=== PATIENT | female | born 1955 | race Caucasian/White ===

== ENCOUNTER 2020-05-09 13:43 | Observation (INO) | payer OTHER ==
[~2020-05-09] VITALS: Ht 170.2 cm; Wt 129.3 kg
[~2020-05-09 13:43] MED LIST: ATOR40TA PO; GEMF600 PO; IBUP100S PO; OMEP20ER PO; SERT100 PO; SERT50 PO; SIMV40 PO
[2020-05-09 14:20] LABS: BASOPHILS ABSOLUTE AUTO 0.07 K/mm3 (0.00-0.23); BASOPHILS PERCENT AUTO 1 % (0-2); EOSINOPHILS PERCENT AUTO 1 % (0-6); Hematocrit 37.5 % (33.0-51.0); Hemoglobin 11.7 g/dL (11.5-16.0); IMMATURE GRAN ABSOLUTE AUTO 0.02 K/mm3 (0.00-0.10); IMMATURE GRAN PERCENT AUTO 0 % (0-1); LYMPHOCYTES ABSOLUTE AUTO 1.38 K/mm3 (0.84-5.20); LYMPHOCYTES PERCENT AUTO 17 % (21-46); MONOCYTES ABSOLUTE AUTO 0.56 K/mm3 (0.16-1.47); MONOCYTES PERCENT AUTO 7 % (4-13); Mean Corpuscular HGB 23.5 pg (26.0-34.0); Mean Corpuscular HGB Conc 31.2 g/dL (31.5-36.5); Mean Corpuscular Volume 76 fL (80-100); Mean Platelet Volume 9.2 fL (9.1-12.4); NEUTROPHILS ABSOLUTE AUTO 6.03 K/mm3 (1.96-9.15); NEUTROPHILS PERCENT AUTO 74 % (41-73); Platelet Count 286 K/mm3 (150-400); RDW Coefficient Variation 16.2 % (11.7-14.2); RDW Standard Deviation 44.4 fL (35.1-46.3); Red Blood Cell Count 4.97 M/mm3 (3.80-5.20); White Blood Cell Count 8.16 K/mm3 (4.00-11.30)
[2020-05-09] MEDS ORDERED: ALPR.5 PO (14:26)
[2020-05-09 14:42] LABS: Alanine Aminotransfer (ALT/SGP 25 U/L (12-78); Albumin, Blood 3.4 g/dL (3.4-5.0); Albumin/Globulin Ratio 0.8 (0.8-1.8); Alk Phos 92 U/L (50-136); Anion Gap 8 mmol/L (6-16); Aspartate Aminotrans (AST/SGOT 12 U/L (12-37); Bilirubin, Total 0.7 mg/dL (0.1-1.0); Blood Urea Nitrogen 15 mg/dL (8-24); Bun/Creatinine Ratio 18.1 (12.0-20.0); CO2, Blood 24 mmol/L (21-32); Calcium, Blood 8.5 mg/dL (8.5-10.1); Chloride, Blood 108 mmol/L (98-108); Creatinine, Blood 0.83 mg/dL (0.40-1.00); Glomerular Filtration Rate >60 (60-); Glucose, Blood 191 mg/dL (70-99); Sodium, Blood 140 mmol/L (136-145); Total Protein, Blood 7.4 g/dL (6.4-8.2); Troponin I <0.015 ng/mL (0.000-0.040)
[2020-05-09 16:32] LABS: CHOL/HDL RATIO 5.4; Cholesterol 298 mg/dL (50-200); HDL Cholesterol 55 mg/dL (>39); LDL/HDL RATIO 3.4; Low Density Lipoprotein Chol 186 mg/dL (0-110); Triglycerides 283 mg/dL (30-160); Very Low Density Lipoprot Chol 56 mg/dL (6-32)
--- NOTE | 2020-05-09 19:05 | NUR ---
PATIENT IS ALERT AND ORIENTED. A LATE DINNER TRAY WAS ORDERED FOR THIS PATIENT. ICE WATER WAS PROVIDED TO THE PATIENT. NO COMPLAINTS OF CHEST PAIN.
--- NOTE | 2020-05-09 22:47 | NUR ---
PT RESTING COMFORTABLY IN BED; DENIES PAIN OR NAUSEA; TELEMETRY REFLECTS NSR PER MARU--VOIP NETWORK ENGINEER.
--- NOTE | 2020-05-10 04:01 | NUR ---
SHIFT SUMMARY: 64 Y/O FEMALE RESTED COMFORTABLY ALL SHIFT; DENIES PAIN OR NAUSEA; TROPONIN BLOOD LEVELS <.015; HAPPY AND COOPERATIVE; EAGER TO RETURN HOME; BED LOW POSITION WITH CALL LIGHT AT SIDE.
--- NOTE | 2020-05-10 12:00 | NUR ---
Patient is sitting on EOB and laert. Patient tells me that she is anxious because she wants to leave and has her "ride" wating in the parking lot. Patient immediately shares about the of her (2 yrs ago), her cat that (a wk ago) and the stress that all the covid-19 and fires is causing her. I listen empathically, reinforce helpful attitudes and provide anxiety containment, breath work examples, grief support, and prayer. Patient responds well and displays evidence of reduced stress.
[2020-05-10] MEDS ORDERED: ATOR80 PO (12:01)
[2020-05-10] MEDS ORDERED: HYDCHL25 PO (12:04)
[2020-05-10] MEDS ORDERED: METF500C PO (12:05)
--- NOTE | 2020-05-10 12:54 | NUR ---
DISCHARGE SUMMARY PT DISCHARGING TO HOME WITH FRIEND. NEW RX'S FAXED TO PHARMACY. INFO TO FOLLOW UP WITH PCP DISCUSSED. ALL QUESTIONS ANSWERED. PT DENIES CP AT THIS TIME. VITALS REVIWED. PT WHEELCHAIRED OUT SAFELY WITH STEEL ESTIMATOR.
== END 2020-05-10 13:13 | disposition home or self-care (01) ==
LOC: ER 13:43 → MEDS 13:44 → ENPENDDIS 05-10 11:24 → MEDS 05-10 13:13
PROVIDERS: Emergency Medicine; ADMIT Internal Medicine
DX: F41.9 Anxiety disorder, unspecified (principal); F32.9 Major depressive disorder, single episode, unspecified; E78.5 Hyperlipidemia, unspecified; K21.9 Gastro-esophageal reflux disease without esophagitis; I10 Essential (primary) hypertension; E66.9 Obesity, unspecified; Z87.891 Personal history of nicotine dependence; Z88.5 Allergy status to narcotic agent; Z88.1 Allergy status to other antibiotic agents; Z79.899 Other long term (current) drug therapy; Z68.41 Body mass index [BMI] 40.0-44.9, adult
CPT/HCPCS: 36415; 80053; 80061; 83036; 84484; 85025; 93005; 93010; 93306; 99285-25; A9270-GY; G0378

== ENCOUNTER 2020-10-14 20:08 | Emergency (ER) | payer OTHER ==
[~2020-10-14] VITALS: Ht 167.6 cm; Wt 127.0 kg
[~2020-10-14 20:08] MED LIST changes: +ALPR.5 PO; +ATOR80 PO; +HYDCHL25 PO; +METF500C PO
[2020-10-14 21:03] LABS: BASOPHILS ABSOLUTE AUTO 0.08 K/mm3 (0.00-0.23); BASOPHILS PERCENT AUTO 1 % (0-2); EOSINOPHILS ABSOLUTE AUTO 0.13 K/mm3 (0.00-0.68); EOSINOPHILS PERCENT AUTO 1 % (0-6); Hematocrit 32.8 % (33.0-51.0); Hemoglobin 9.7 g/dL (11.5-16.0); IMMATURE GRAN ABSOLUTE AUTO 0.03 K/mm3 (0.00-0.10); IMMATURE GRAN PERCENT AUTO 0 % (0-1); LYMPHOCYTES PERCENT AUTO 15 % (21-46); MONOCYTES ABSOLUTE AUTO 0.66 K/mm3 (0.16-1.47); MONOCYTES PERCENT AUTO 6 % (4-13); Mean Corpuscular HGB 20.8 pg (26.0-34.0); Mean Corpuscular HGB Conc 29.6 g/dL (31.5-36.5); Mean Corpuscular Volume 70 fL (80-100); Mean Platelet Volume 9.6 fL (9.1-12.4); NEUTROPHILS ABSOLUTE AUTO 8.05 K/mm3 (1.96-9.15); NEUTROPHILS PERCENT AUTO 76 % (41-73); Platelet Count 365 K/mm3 (150-400); RDW Coefficient Variation 14.7 % (11.7-14.2); RDW Standard Deviation 36.8 fL (35.1-46.3); Red Blood Cell Count 4.66 M/mm3 (3.80-5.20); White Blood Cell Count 10.55 K/mm3 (4.00-11.30)
[2020-10-14 21:25] LABS: Alanine Aminotransfer (ALT/SGP 19 U/L (12-78); Albumin, Blood 3.7 g/dL (3.4-5.0); Alk Phos 122 U/L (50-136); Anion Gap 5 mmol/L (6-16); Aspartate Aminotrans (AST/SGOT 8 U/L (12-37); Bilirubin, Total 0.6 mg/dL (0.1-1.0); Blood Urea Nitrogen 18 mg/dL (8-24); Bun/Creatinine Ratio 22.6 (12.0-20.0); CO2, Blood 26 mmol/L (21-32); Calcium, Blood 9.1 mg/dL (8.5-10.1); Chloride, Blood 109 mmol/L (98-108); Globulin, Blood 3.8 g/dL (2.2-4.0); Glomerular Filtration Rate >60 (60-); Glucose, Blood 132 mg/dL (70-99); Sodium, Blood 140 mmol/L (136-145); Total Protein, Blood 7.5 g/dL (6.4-8.2); Troponin I <0.015 ng/mL (0.000-0.040)
[2020-10-15] MEDS ORDERED: Ferrous Sulfat325 MG PO (00:20)
[2020-12-20] MEDS ORDERED: PANTOPRAZOLE SO40 M2 PO (10:42)
[2020-12-20] MEDS ORDERED: ATOR40TA PO (10:43)
[2020-12-20] MEDS ORDERED: LOSA50 PO (10:43)
[2020-12-20] MEDS ORDERED: BUSPIRONE HCL10 M2 PO (10:43)
[2020-12-20] MEDS ORDERED: SERT100 PO (10:43)
[2020-12-20] MEDS ORDERED: METFORMIN HCL500 M3 PO (10:43)
[2020-12-20] MEDS ORDERED: ASPI81CH PO (10:44)
[2020-12-20] MEDS ORDERED: ALPR.5 PO (10:45)
[2020-12-20] MEDS ORDERED: MULTI-VITAMIN1 EAC2 PO (10:45)
[2020-12-27] MEDS ORDERED: PANT40 (12:51)
[2021-02-07] MEDS ORDERED: ALBU90OI INH (13:20)
[2021-02-07] MEDS ORDERED: SERT100 PO (13:21)
== END 2020-10-15 00:32 | disposition home or self-care (01) ==
LOC: ER 20:08
PROVIDERS: Physician Assistant
DX: D50.9 Iron deficiency anemia, unspecified (principal); I10 Essential (primary) hypertension; E78.5 Hyperlipidemia, unspecified; K21.9 Gastro-esophageal reflux disease without esophagitis; Z87.891 Personal history of nicotine dependence; Z79.899 Other long term (current) drug therapy; Z79.84 Long term (current) use of oral hypoglycemic drugs; Z88.2 Allergy status to sulfonamides; Z88.5 Allergy status to narcotic agent; Z88.1 Allergy status to other antibiotic agents
CPT/HCPCS: 80053; 84443; 84484; 85025; 93005; 93010; 99285-25

== ENCOUNTER 2021-01-10 15:14 | Emergency (ER) | payer OTHER ==
[~2021-01-10] VITALS: Ht 170.2 cm; Wt 122.5 kg
[~2021-01-10 15:14] MED LIST changes: +ASPI81CH PO; +BUSPIRONE HCL10 M2 PO; +Ferrous Sulfat325 MG PO; +LOSA50 PO; +METFORMIN HCL500 M3 PO; +MULTI-VITAMIN1 EAC2 PO; +PANT40; +PANTOPRAZOLE SO40 M2 PO
[2021-01-10 15:41] LABS: BASOPHILS ABSOLUTE AUTO 0.06 K/mm3 (0.00-0.23); BASOPHILS PERCENT AUTO 1 % (0-2); EOSINOPHILS ABSOLUTE AUTO 0.11 K/mm3 (0.00-0.68); EOSINOPHILS PERCENT AUTO 1 % (0-6); Hematocrit 36.7 % (33.0-51.0); Hemoglobin 11.1 g/dL (11.5-16.0); IMMATURE GRAN ABSOLUTE AUTO 0.02 K/mm3 (0.00-0.10); IMMATURE GRAN PERCENT AUTO 0 % (0-1); LYMPHOCYTES ABSOLUTE AUTO 1.57 K/mm3 (0.84-5.20); LYMPHOCYTES PERCENT AUTO 20 % (21-46); MONOCYTES PERCENT AUTO 6 % (4-13); Mean Corpuscular HGB 22.1 pg (26.0-34.0); Mean Corpuscular HGB Conc 30.2 g/dL (31.5-36.5); Mean Corpuscular Volume 73 fL (80-100); Mean Platelet Volume 9.5 fL (9.1-12.4); NEUTROPHILS ABSOLUTE AUTO 5.78 K/mm3 (1.96-9.15); NEUTROPHILS PERCENT AUTO 72 % (41-73); Platelet Count 301 K/mm3 (150-400); RDW Coefficient Variation 20.2 % (11.7-14.2); RDW Standard Deviation 51.8 fL (35.1-46.3); Red Blood Cell Count 5.03 M/mm3 (3.80-5.20); White Blood Cell Count 8.04 K/mm3 (4.00-11.30)
[2021-01-10 16:00] LABS: Alanine Aminotransfer (ALT/SGP 22 U/L (12-78); Albumin, Blood 3.8 g/dL (3.4-5.0); Alk Phos 101 U/L (50-136); Anion Gap 5 mmol/L (6-16); Aspartate Aminotrans (AST/SGOT 11 U/L (12-37); Bilirubin, Total 0.6 mg/dL (0.1-1.0); Blood Urea Nitrogen 14 mg/dL (8-24); Bun/Creatinine Ratio 16.6 (12.0-20.0); CO2, Blood 25 mmol/L (21-32); Calcium, Blood 8.7 mg/dL (8.5-10.1); Chloride, Blood 110 mmol/L (98-108); Creatinine, Blood 0.84 mg/dL (0.40-1.00); Globulin, Blood 3.7 g/dL (2.2-4.0); Glomerular Filtration Rate >60 (60-); Glucose, Blood 104 mg/dL (70-99); Sodium, Blood 140 mmol/L (136-145); Total Protein, Blood 7.5 g/dL (6.4-8.2)
[2021-02-07] MEDS ORDERED: ALBU90OI INH (13:20)
[2021-02-07] MEDS ORDERED: SERT100 PO (13:21)
== END 2021-01-10 20:03 | disposition home or self-care (01) ==
LOC: ER 15:14
PROVIDERS: Emergency Medicine
DX: K21.9 Gastro-esophageal reflux disease without esophagitis (principal); I10 Essential (primary) hypertension; Z88.2 Allergy status to sulfonamides; Z88.5 Allergy status to narcotic agent; Z88.1 Allergy status to other antibiotic agents; Z79.899 Other long term (current) drug therapy; Z87.891 Personal history of nicotine dependence
CPT/HCPCS: 36415; 74177; 80053; 83690; 83735; 84484; 85025; 93005; 93010; 96374-59; 99284-25; J2405; Q9967

== ENCOUNTER 2021-02-10 08:54 | Day surgery (SDC) | payer OTHER ==
[~2021-02-10] VITALS: Ht 170.2 cm; Wt 125.0 kg
[~2021-02-10 08:54] MED LIST changes: +ALBU90OI INH
[2021-02-10] MEDS ORDERED: MAGNESIUM OXID500 MG PO (09:33)
[2021-02-10] MEDS ORDERED: Selenomax200 MCG PO (09:33)
[2021-02-10] MEDS ORDERED: OMEGA-3 FISH O1 EAC6 PO (09:34)
--- NOTE | 2021-02-10 13:36 | NUR ---
PATIENT RETURNED FROM THE [facility] VIA RECLINER. TR BAND ON THE RIGHT RADIAL WITH 10 ML OF AIR PLACED AT 1313. MONITOR APPLIED AND CALL LIGHT IN REACH. PATIENT LUNCH TRAY SET UP AND FEEDING SELF. NO BLEEDING NOTED. NO PAIN NOTED.
--- NOTE | 2021-02-10 14:55 | NUR ---
BEGAN REMOVING AIR FROM THE TR BAND. VVS. REVIEWED ALL DISCHARGE INSTRUCTIONS WITH THE PATIENT AND NO FURTHER QUESTIONS. COPIES SIGNED AND GIVEN TO PATIENT.
--- NOTE | 2021-02-10 15:13 | NUR ---
TR BAND FLAT AT 1500. PIV REMOVED AND PATIENT UP AND DRESSED. VVS. NO PAIN NOTED. NO BLEEDING NOTED TO THE RIGHT RADIAL.
--- NOTE | 2021-02-10 15:25 | NUR ---
TR BAND REMOVED AND SITE CLEANED AND DRIED. CLOTH DOT PLACED AND WHITE BOARD REPLACED TO THE RIGHT RADIAL. NO FURTHER QUESTIONS NOTED FROM THE PATIENT.
== END 2021-02-10 16:00 | disposition home or self-care (01) ==
LOC: MHTC 08:54
PROC: B2111ZZ Fluoroscopy of Multiple Coronary Arteries using Low Osmolar Contrast (ICD-10-PCS; principal; 2021-02-10)
PROC: 4A023N7 Measurement of Cardiac Sampling and Pressure, Left Heart, Percutaneous Approach (ICD-10-PCS; principal; 2021-02-10)
DX: I25.10 Atherosclerotic heart disease of native coronary artery without angina pectoris (principal); Z88.5 Allergy status to narcotic agent; Z88.2 Allergy status to sulfonamides; Z88.1 Allergy status to other antibiotic agents
CPT/HCPCS: 93458; 99152; 99153; C1769; C1894; J1644; J2250; J3010; J7030; J7050; Q9967

== ENCOUNTER 2021-12-16 07:57 | Emergency (ER) | payer MEDICARE, OTHER ==
[~2021-12-16] VITALS: Ht 170.2 cm; Wt 138.3 kg
[~2021-12-16 07:57] MED LIST changes: +MAGNESIUM OXID500 MG PO; +OMEGA-3 FISH O1 EAC6 PO; +Selenomax200 MCG PO
[2021-12-16] MEDS ORDERED: Buspirone HCl15 MG PO (09:39)
== END 2021-12-16 09:59 | disposition home or self-care (01) ==
LOC: ER 07:57
DX: F41.9 Anxiety disorder, unspecified (principal); I10 Essential (primary) hypertension; E78.5 Hyperlipidemia, unspecified; K21.9 Gastro-esophageal reflux disease without esophagitis; Z87.891 Personal history of nicotine dependence; Z88.2 Allergy status to sulfonamides; Z88.5 Allergy status to narcotic agent; Z79.899 Other long term (current) drug therapy
CPT/HCPCS: 99283; A9270

== ENCOUNTER 2022-02-03 10:50 | Day surgery (SDC) | payer MEDICARE, OTHER ==
[~2022-02-03] VITALS: Ht 170.2 cm; Wt 139.2 kg
[~2022-02-03 10:50] MED LIST changes: +Buspirone HCl15 MG PO
== END 2022-02-03 13:47 | disposition home or self-care (01) ==
LOC: ORSCSDS 10:50
PROVIDERS: Student in an Organized Health Care Education/Training Program
PROC: 0DB58ZX Excision of Esophagus, Via Natural or Artificial Opening Endoscopic, Diagnostic (ICD-10-PCS; principal; 2022-02-03 12:15)
PROC: 0DB78ZX Excision of Stomach, Pylorus, Via Natural or Artificial Opening Endoscopic, Diagnostic (ICD-10-PCS; principal; 2022-02-03 12:15)
DX: K21.9 Gastro-esophageal reflux disease without esophagitis (principal); K22.70 Barrett's esophagus without dysplasia; K31.7 Polyp of stomach and duodenum; K44.9 Diaphragmatic hernia without obstruction or gangrene; I10 Essential (primary) hypertension; E78.5 Hyperlipidemia, unspecified; E11.9 Type 2 diabetes mellitus without complications; E66.01 Morbid (severe) obesity due to excess calories; Z68.42 Body mass index [BMI] 45.0-49.9, adult; Z79.899 Other long term (current) drug therapy; Z79.82 Long term (current) use of aspirin; F41.9 Anxiety disorder, unspecified
CPT/HCPCS: 82947; 88305; 88342; A9270; J2704; J7120

== ENCOUNTER 2022-05-04 11:50 | Emergency (ER) | payer MEDICARE, OTHER ==
[~2022-05-04] VITALS: Ht 165.1 cm; Wt 127.0 kg
[2022-05-04 14:00] LABS: BASOPHILS ABSOLUTE AUTO 0.07 K/mm3 (0.00-0.23); BASOPHILS PERCENT AUTO 1 % (0-2); EOSINOPHILS ABSOLUTE AUTO 0.14 K/mm3 (0.00-0.68); EOSINOPHILS PERCENT AUTO 2 % (0-6); Hemoglobin 13.2 g/dL (11.5-16.0); IMMATURE GRAN ABSOLUTE AUTO 0.04 K/mm3 (0.00-0.10); IMMATURE GRAN PERCENT AUTO 0 % (0-1); LYMPHOCYTES ABSOLUTE AUTO 1.59 K/mm3 (0.84-5.20); LYMPHOCYTES PERCENT AUTO 18 % (21-46); MONOCYTES ABSOLUTE AUTO 0.53 K/mm3 (0.16-1.47); MONOCYTES PERCENT AUTO 6 % (4-13); Mean Corpuscular HGB 25.9 pg (26.0-34.0); Mean Corpuscular HGB Conc 32.2 g/dL (31.5-36.5); Mean Corpuscular Volume 80 fL (80-100); Mean Platelet Volume 9.2 fL (9.1-12.4); NEUTROPHILS PERCENT AUTO 74 % (41-73); Platelet Count 292 K/mm3 (150-400); RDW Coefficient Variation 14.1 % (11.7-14.2); RDW Standard Deviation 41.7 fL (35.1-46.3); White Blood Cell Count 9.07 K/mm3 (4.00-11.30)
[2022-05-04 14:19] LABS: Albumin, Blood 3.8 g/dL (3.4-5.0); Albumin/Globulin Ratio 1.1 (0.8-1.8); Bilirubin, Total 0.7 mg/dL (0.1-1.0); Bun/Creatinine Ratio 20.2 (12.0-20.0); Calcium, Blood 9.3 mg/dL (8.5-10.1); Creatinine, Blood 0.84 mg/dL (0.40-1.00); Globulin, Blood 3.6 g/dL (2.2-4.0); Potassium, Blood 4.3 mmol/L (3.5-5.5); Total Protein, Blood 7.4 g/dL (6.4-8.2)
[2022-05-04] MEDS ORDERED: ONDA4ODT MM (15:24)
== END 2022-05-04 15:37 | disposition home or self-care (01) ==
LOC: ER 11:50
PROVIDERS: Emergency Medicine
DX: R07.89 Other chest pain (principal); F41.9 Anxiety disorder, unspecified; I10 Essential (primary) hypertension; R73.03 Prediabetes; E78.5 Hyperlipidemia, unspecified; K21.9 Gastro-esophageal reflux disease without esophagitis; Z88.2 Allergy status to sulfonamides; Z88.5 Allergy status to narcotic agent; Z88.1 Allergy status to other antibiotic agents; Z79.899 Other long term (current) drug therapy; Z79.82 Long term (current) use of aspirin; Z79.84 Long term (current) use of oral hypoglycemic drugs; Z87.891 Personal history of nicotine dependence
CPT/HCPCS: 36415; 71045; 80053; 83690; 84484; 85025; 93005; 93010

== ENCOUNTER 2023-12-22 11:21 | Emergency (ER) | payer MEDICARE, OTHER ==
[~2023-12-22] VITALS: Ht 170.2 cm; Wt 132.9 kg
[~2023-12-22 11:21] MED LIST changes: -BUSPIRONE HCL10 M2 PO; +ESCI20 PO; +IRON18 MG PO; +METOPROLOL SUCC25 MG PO; +ONDA4ODT MM; +Prinivil10 MG PO
[2023-12-22 11:54] VITALS: BP 173/85
[2023-12-22 12:58] LABS: Albumin, Blood 3.6 g/dL (3.4-5.0); Bilirubin, Total 0.8 mg/dL (0.1-1.0); Bun/Creatinine Ratio 16.4 (12.0-20.0); Calcium, Blood 9.2 mg/dL (8.5-10.1); Creatinine, Blood 0.73 mg/dL (0.40-1.00); Globulin, Blood 3.7 g/dL (2.2-4.0); Potassium, Blood 4.1 mmol/L (3.5-5.5); Total Protein, Blood 7.3 g/dL (6.4-8.2)
[2023-12-22 14:12] LABS: BASOPHILS PERCENT AUTO 1 % (0-2); EOSINOPHILS ABSOLUTE AUTO 0.23 K/mm3 (0.00-0.68); EOSINOPHILS PERCENT AUTO 2 % (0-6); Hematocrit 40.2 % (33.0-51.0); Hemoglobin 13.6 g/dL (11.5-16.0); IMMATURE GRAN ABSOLUTE AUTO 0.05 K/mm3 (0.00-0.10); IMMATURE GRAN PERCENT AUTO 1 % (0-1); LYMPHOCYTES ABSOLUTE AUTO 1.39 K/mm3 (0.84-5.20); LYMPHOCYTES PERCENT AUTO 14 % (21-46); MONOCYTES ABSOLUTE AUTO 0.67 K/mm3 (0.16-1.47); MONOCYTES PERCENT AUTO 7 % (4-13); Mean Corpuscular HGB 27.3 pg (26.0-34.0); Mean Corpuscular HGB Conc 33.8 g/dL (31.5-36.5); Mean Corpuscular Volume 81 fL (80-100); NEUTROPHILS ABSOLUTE AUTO 7.21 K/mm3 (1.96-9.15); NEUTROPHILS PERCENT AUTO 75 % (41-73); RDW Coefficient Variation 14.4 % (11.7-14.2); RDW Standard Deviation 41.8 fL (35.1-46.3); Red Blood Cell Count 4.99 M/mm3 (3.80-5.20); White Blood Cell Count 9.65 K/mm3 (4.00-11.30)
== END 2023-12-22 17:43 ==
LOC: ER 11:21
PROVIDERS: Physician Assistant
DX: R00.2 Palpitations (principal); I10 Essential (primary) hypertension; E78.5 Hyperlipidemia, unspecified; R73.03 Prediabetes; K21.9 Gastro-esophageal reflux disease without esophagitis; Z87.891 Personal history of nicotine dependence; Z79.84 Long term (current) use of oral hypoglycemic drugs; Z79.899 Other long term (current) drug therapy; Z88.1 Allergy status to other antibiotic agents; Z88.2 Allergy status to sulfonamides; Z88.5 Allergy status to narcotic agent
CPT/HCPCS: 80053; 84484; 85025; 93005; 93010; 99285-25

== ENCOUNTER 2024-08-28 02:56 | Observation (INO) | payer MEDICARE ==
[~2024-08-28] VITALS: Ht 167.6 cm; Wt 136.1 kg
[2024-08-28 03:15] LABS: BASOPHILS ABSOLUTE AUTO 0.05 K/mm3 (0.00-0.23); BASOPHILS PERCENT AUTO 1 % (0-2); EOSINOPHILS ABSOLUTE AUTO 0.31 K/mm3 (0.00-0.68); EOSINOPHILS PERCENT AUTO 4 % (0-6); Hematocrit 39.5 % (33.0-51.0); Hemoglobin 13.1 g/dL (11.5-16.0); IMMATURE GRAN ABSOLUTE AUTO 0.03 K/mm3 (0.00-0.10); IMMATURE GRAN PERCENT AUTO 0 % (0-1); LYMPHOCYTES ABSOLUTE AUTO 1.44 K/mm3 (0.84-5.20); LYMPHOCYTES PERCENT AUTO 20 % (21-46); MONOCYTES ABSOLUTE AUTO 0.65 K/mm3 (0.16-1.47); MONOCYTES PERCENT AUTO 9 % (4-13); Mean Corpuscular HGB 28.7 pg (26.0-34.0); Mean Corpuscular HGB Conc 33.2 g/dL (31.5-36.5); Mean Corpuscular Volume 86 fL (80-100); Mean Platelet Volume 8.9 fL (9.1-12.4); NEUTROPHILS ABSOLUTE AUTO 4.59 K/mm3 (1.96-9.15); NEUTROPHILS PERCENT AUTO 65 % (41-73); Platelet Count 232 K/mm3 (150-400); RDW Coefficient Variation 13.6 % (11.7-14.2); RDW Standard Deviation 42.8 fL (35.1-46.3); Red Blood Cell Count 4.57 M/mm3 (3.80-5.20); White Blood Cell Count 7.07 K/mm3 (4.00-11.30)
[2024-08-28 03:40] LABS: Ethanol (Alcohol), Blood, Med 3 mg/dL; Magnesium, Blood 2.2 mg/dL (1.6-2.4); Salicylate <1.7 mg/dL (2.8-20.0)
[2024-08-28 03:42] LABS: Base Excess Venous 0.4 mmol/L; Bicarbonate Venous 24.1 mmol/L (24.0-30.0); PCO2 Venous 47.3 mmHg (38-42); pH Blood Venous 7.35 (7.34-7.37)
[2024-08-28 03:45] LABS: Alanine Aminotransfer (ALT/SGP 20 U/L (12-78); Albumin, Blood 3.3 g/dL (3.4-5.0); Albumin/Globulin Ratio 0.9 (0.8-1.8); Alk Phos 127 U/L (50-136); Anion Gap 10 mmol/L (3-11); Aspartate Aminotrans (AST/SGOT 27 U/L (12-37); Bilirubin, Total 0.9 mg/dL (0.1-1.0); Blood Urea Nitrogen 13 mg/dL (8-24); Bun/Creatinine Ratio 16.2 (12.0-20.0); CO2, Blood 23 mmol/L (21-32); Calcium, Blood 8.7 mg/dL (8.5-10.1); Chloride, Blood 111 mmol/L (98-108); Globulin, Blood 3.6 g/dL (2.2-4.0); Glomerular Filtration Rate 80 (60-); Glucose, Blood 119 mg/dL (70-99); Phosphorus, Blood 3.4 mg/dL (2.5-4.9); Potassium, Blood 4.3 mmol/L (3.5-5.5); Sodium, Blood 140 mmol/L (136-145); Total Protein, Blood 6.9 g/dL (6.4-8.2)
[2024-08-28 03:47] LABS: Acetaminophen, Random <2.0 ug/mL (10.0-30.0)
[2024-08-28 15:55] LABS: Source, Urine Clean Catch
[2024-08-28 16:10] LABS: Appearance, Urine Clear (Clear); Bilirubin, Urine Neg (Neg); Blood, Urine Neg (Neg); Color, Urine Yellow (P-Yellow); Glucose Qualitative, Urine Neg (Neg); Ketones, Urine Neg (Neg); Leukocyte Esterase, Urine 1+ (Neg); Nitrite, Urine Neg (Neg); Protein, Urine Neg (Neg); Specific Gravity, Urine 1.025 (1.003-1.022); Urobilinogen, Urine NORM (Normal)
[2024-08-28 16:32] LABS: Bacteria Rare /hpf; Hyaline Casts 0-2 /lpf (0-2); Mucus Light (0-Heavy); Red Blood Cells, Urine Not Seen /hpf (0-2); Squamous Epithelial Cells Rare /hpf (Few); White Blood Cells, Urine 0-2 /hpf (0-5)
[2024-08-28 16:33] LABS: U Amphetamine Screen Not Detected; U Barbituate Screen Not Detected; U Benzodiazapine Screen DETECTED; U Buprenorphine Screen Not Detected; U Cannabinoids Screen Not Detected; U Cocaine Screen Not Detected; U Methadone Screen Not Detected; U Methamphetamine Screen Not Detected; U Opiates Screen Not Detected; U Oxycodone Screen Not Detected; U Phencyclidine Screen Not Detected
[2024-08-29] MEDS ORDERED: BusPIRone HCl 10 MG Tab PO SCH (00:05)
[2024-08-29] MEDS ORDERED: MetFORMIN HCl 500 mg PO SCH (00:10)
[2024-08-29] MEDS ORDERED: buPROPion HCL 150 MG TAB.SR.12H PO SCH (00:10)
[2024-08-29] MEDS ORDERED: Citalopram Hydrobromide 20 MG Tab PO SCH (00:20)
[2024-08-29] MEDS ORDERED: Atorvastatin 40 MG Tab PO SCH (01:01)
[2024-08-29] MEDS ORDERED: BuPROPion HCl SR 100 MG TabCR PO SCH (09:00)
[2024-08-29 09:35] VITALS: BP 151/65
== END 2024-08-29 12:27 | disposition home or self-care (01) ==
LOC: ER 02:56 → EOR 02:57
PROVIDERS: ADMIT Emergency Medicine
DX: T42.4X2A Poisoning by benzodiazepines, intentional self-harm, initial encounter (principal); R45.851 Suicidal ideations; F33.9 Major depressive disorder, recurrent, unspecified; I10 Essential (primary) hypertension; E78.5 Hyperlipidemia, unspecified; R73.03 Prediabetes; K21.9 Gastro-esophageal reflux disease without esophagitis; Z79.84 Long term (current) use of oral hypoglycemic drugs; Z87.891 Personal history of nicotine dependence; Z88.2 Allergy status to sulfonamides; Z88.5 Allergy status to narcotic agent
CPT/HCPCS: 80053; 80320; 81001; 82140; 82803; 83735; 84100; 84443; 85025; 87086; 93005; 93010; 99285-25; A9270; G0378; G0480

== ENCOUNTER 2025-04-09 11:57 | Emergency (ER) | payer OTHER ==
[~2025-04-09] VITALS: Ht 170.2 cm; Wt 131.5 kg
[2025-04-09 13:24] LABS: BASOPHILS ABSOLUTE AUTO 0.09 K/mm3 (0.00-0.23); BASOPHILS PERCENT AUTO 1 % (0-2); EOSINOPHILS ABSOLUTE AUTO 0.32 K/mm3 (0.00-0.68); EOSINOPHILS PERCENT AUTO 3 % (0-6); Hematocrit 42.8 % (33.0-51.0); Hemoglobin 13.7 g/dL (11.5-16.0); IMMATURE GRAN ABSOLUTE AUTO 0.05 K/mm3 (0.00-0.10); IMMATURE GRAN PERCENT AUTO 0 % (0-1); LYMPHOCYTES ABSOLUTE AUTO 1.68 K/mm3 (0.84-5.20); LYMPHOCYTES PERCENT AUTO 14 % (21-46); MONOCYTES ABSOLUTE AUTO 0.74 K/mm3 (0.16-1.47); MONOCYTES PERCENT AUTO 6 % (4-13); Mean Corpuscular HGB Conc 32.0 g/dL (31.5-36.5); Mean Corpuscular Volume 89 fL (80-100); NEUTROPHILS ABSOLUTE AUTO 9.58 K/mm3 (1.96-9.15); NEUTROPHILS PERCENT AUTO 77 % (41-73); NRBC ABSOLUTE 0.00 K/mm3 (0.00-0.02); NRBC Auto 0.0 /100 WBC (0.0-0.2); Platelet Count 317 K/mm3 (150-400); RDW Coefficient Variation 13.2 % (11.7-14.2); RDW Standard Deviation 43.0 fL (35.1-46.3)
[2025-04-09 13:48] LABS: Alanine Aminotransfer (ALT/SGP 25.0 U/L (12-78); Albumin, Blood 3.6 g/dL (3.4-5.0); Albumin/Globulin Ratio 1.0 (0.8-1.8); Anion Gap 8.0 mmol/L (3-11); Aspartate Aminotrans (AST/SGOT 18.0 U/L (12-37); Bilirubin, Total 1.3 mg/dL (0.1-1.0); Blood Urea Nitrogen 12.0 mg/dL (8-24); CO2, Blood 24.0 mmol/L (21-32); Calcium, Blood 9.2 mg/dL (8.5-10.1); Chloride, Blood 110.0 mmol/L (98-108); Creatinine, Blood 0.98 mg/dL (0.40-1.00); Globulin, Blood 3.5 g/dL (2.2-4.0); Glucose, Blood 117.0 mg/dL (70-99); Potassium, Blood 4.2 mmol/L (3.5-5.5); Sodium, Blood 138.0 mmol/L (136-145); Total Protein, Blood 7.1 g/dL (6.4-8.2)
[2025-04-09 13:59] LABS: Lithium 0.98 mmol/L (0.60-1.20)
[2025-04-09 17:45] VITALS: BP 148/60
== END 2025-04-09 18:13 | disposition home or self-care (01) ==
LOC: ER 11:57
PROVIDERS: Student in an Organized Health Care Education/Training Program
DX: F41.9 Anxiety disorder, unspecified (principal); R07.9 Chest pain, unspecified; Z79.899 Other long term (current) drug therapy
CPT/HCPCS: 71046; 80053; 80178; 84484; 85025

== ENCOUNTER 2025-05-22 17:05 | Inpatient (IN) | payer OTHER ==
[~2025-05-22] VITALS: Ht 170.2 cm; Wt 133.5 kg
[~2025-05-22 17:05] MED LIST changes: +FEROSUL325 M1 PO; -IRON18 MG PO
[2025-05-22] MEDS ORDERED: Ketorolac Tromethamine 30mg Vial IV ONE (18:20)
[2025-05-22] MEDS ORDERED: Ondansetron HCl 2 MG / ML 2ML Vial IV ONE (18:20)
[2025-05-22] MEDS ORDERED: Metoclopramide HCl 5MG / ML 2ML Vial IV ONE (21:05)
[2025-05-22] MEDS ORDERED: Morphine Sulfate 4 MG/1 ML Injection IV ONE (21:05)
[2025-05-22 21:06] LABS: Alanine Aminotransfer (ALT/SGP 26 U/L (12-78); Albumin, Blood 3.8 g/dL (3.4-5.0); Albumin/Globulin Ratio 1.1 (0.8-1.8); Anion Gap 12 mmol/L (3-11); Aspartate Aminotrans (AST/SGOT 27 U/L (12-37); Bilirubin, Total 0.8 mg/dL (0.1-1.0); Blood Urea Nitrogen 19 mg/dL (8-24); CO2, Blood 19 mmol/L (21-32); Calcium, Blood 8.7 mg/dL (8.5-10.1); Chloride, Blood 111 mmol/L (98-108); Creatinine, Blood 0.82 mg/dL (0.40-1.00); Globulin, Blood 3.6 g/dL (2.2-4.0); Glucose, Blood 231 mg/dL (70-99); Potassium, Blood 4.1 mmol/L (3.5-5.5); Sodium, Blood 138 mmol/L (136-145); Total Protein, Blood 7.4 g/dL (6.4-8.2)
[2025-05-22 21:26] LABS: Source, Urine Clean Catch
[2025-05-22 21:32] LABS: Bilirubin, Urine Neg (Neg); Color, Urine Yellow (P-Yellow); Glucose Qualitative, Urine Neg (Neg); Ketones, Urine 2+ (Neg); Leukocyte Esterase, Urine Neg (Neg); Protein, Urine 2+ (Neg); Specific Gravity, Urine 1.015 (1.003-1.022); Urobilinogen, Urine NORM (Normal)
[2025-05-22 21:39] LABS: EOSINOPHILS ABSOLUTE AUTO 0.26 K/mm3 (0.00-0.68); EOSINOPHILS PERCENT AUTO 1 % (0-6); Hematocrit 43.8 % (33.0-51.0); Hemoglobin 14.5 g/dL (11.5-16.0); IMMATURE GRAN ABSOLUTE AUTO 0.09 K/mm3 (0.00-0.10); IMMATURE GRAN PERCENT AUTO 0 % (0-1); LYMPHOCYTES ABSOLUTE AUTO 1.75 K/mm3 (0.84-5.20); LYMPHOCYTES PERCENT AUTO 8 % (21-46); MONOCYTES ABSOLUTE AUTO 1.17 K/mm3 (0.16-1.47); MONOCYTES PERCENT AUTO 5 % (4-13); Mean Corpuscular HGB Conc 33.1 g/dL (31.5-36.5); Mean Corpuscular Volume 86 fL (80-100); NEUTROPHILS ABSOLUTE AUTO 19.49 K/mm3 (1.96-9.15); NEUTROPHILS PERCENT AUTO 86 % (41-73); NRBC ABSOLUTE 0.00 K/mm3 (0.00-0.02); NRBC Auto 0.0 /100 WBC (0.0-0.2); Platelet Count 333 K/mm3 (150-400); RDW Coefficient Variation 13.5 % (11.7-14.2); RDW Standard Deviation 41.8 fL (35.1-46.3)
[2025-05-22 21:40] LABS: BASOPHILS ABSOLUTE AUTO 0.05 K/mm3 (0.00-0.23); BASOPHILS PERCENT AUTO 0 % (0-2)
[2025-05-22 22:22] LABS: Red Blood Cells, Urine 0-2 /hpf (0-2); White Blood Cells, Urine 0-2 /hpf (0-5)
[2025-05-22] MEDS ORDERED: FLU VACC TS2025(65UP)/MF59C/PF 45 MCG/0.5 ML SYRINGE IM SCH (22:45)
[2025-05-22] MEDS ORDERED: Ondansetron HCl 2 MG / ML 2ML Vial IV PRN (22:50)
[2025-05-22] MEDS ORDERED: Metoclopramide HCl 5MG / ML 2ML Vial IV PRN (22:50)
[2025-05-22] MEDS ORDERED: HYDROmorphone HCl/Pf 1MG SYR IV PRN (22:50)
[2025-05-22] MEDS ORDERED: Atarax10 MG PO (23:05)
[2025-05-22] MEDS ORDERED: MOUNJARO12.5 MG/0. SQ (23:06)
[2025-05-22] MEDS ORDERED: ATOR40TA PO (23:07)
[2025-05-22] MEDS ORDERED: LITH300C PO (23:10)
[2025-05-22] MEDS ORDERED: Ketorolac Tromethamine 15mg Vial IV PRN (23:35)
[2025-05-23] MEDS ORDERED: Insulin Human Lispro 100 Units/ML 3ML Syringe SC SCH
[2025-05-23 00:10] VITALS: BP 163/83
[2025-05-23 01:08] LABS: BASOPHILS ABSOLUTE AUTO 0.04 K/mm3 (0.00-0.23); BASOPHILS PERCENT AUTO 0 % (0-2); EOSINOPHILS ABSOLUTE AUTO 0.01 K/mm3 (0.00-0.68); EOSINOPHILS PERCENT AUTO 0 % (0-6); Hematocrit 42.6 % (33.0-51.0); Hemoglobin 14.0 g/dL (11.5-16.0); IMMATURE GRAN ABSOLUTE AUTO 0.07 K/mm3 (0.00-0.10); IMMATURE GRAN PERCENT AUTO 0 % (0-1); LYMPHOCYTES ABSOLUTE AUTO 0.94 K/mm3 (0.84-5.20); LYMPHOCYTES PERCENT AUTO 5 % (21-46); MONOCYTES ABSOLUTE AUTO 0.59 K/mm3 (0.16-1.47); MONOCYTES PERCENT AUTO 3 % (4-13); Mean Corpuscular HGB Conc 32.9 g/dL (31.5-36.5); Mean Corpuscular Volume 85 fL (80-100); NEUTROPHILS ABSOLUTE AUTO 15.68 K/mm3 (1.96-9.15); NEUTROPHILS PERCENT AUTO 91 % (41-73); NRBC ABSOLUTE 0.00 K/mm3 (0.00-0.02); NRBC Auto 0.0 /100 WBC (0.0-0.2); Platelet Count 285 K/mm3 (150-400); RDW Coefficient Variation 13.5 % (11.7-14.2); RDW Standard Deviation 41.5 fL (35.1-46.3)
[2025-05-23 01:30] LABS: Alanine Aminotransfer (ALT/SGP 25.0 U/L (12-78); Albumin, Blood 3.5 g/dL (3.4-5.0); Albumin/Globulin Ratio 1.1 (0.8-1.8); Anion Gap 10.0 mmol/L (3-11); Aspartate Aminotrans (AST/SGOT 21.0 U/L (12-37); Bilirubin, Total 0.9 mg/dL (0.1-1.0); Blood Urea Nitrogen 21.0 mg/dL (8-24); CO2, Blood 22.0 mmol/L (21-32); Calcium, Blood 8.4 mg/dL (8.5-10.1); Chloride, Blood 111.0 mmol/L (98-108); Creatinine, Blood 0.86 mg/dL (0.40-1.00); Globulin, Blood 3.3 g/dL (2.2-4.0); Glucose, Blood 240.0 mg/dL (70-99); Potassium, Blood 4.3 mmol/L (3.5-5.5); Sodium, Blood 139.0 mmol/L (136-145); Total Protein, Blood 6.8 g/dL (6.4-8.2)
[2025-05-23] MEDS ORDERED: HYDROmorphone HCl/Pf 1MG SYR IV PRN (02:00)
[2025-05-23 02:10] LABS: CHOL/HDL RATIO 2.8; Cholesterol 165 mg/dL (50-200); HDL Cholesterol 60 mg/dL (>39); LDL/HDL RATIO 1.3; Low Density Lipoprotein Chol 79 mg/dL (0-110); Triglycerides 128 mg/dL (30-160); Very Low Density Lipoprot Chol 25 mg/dL (6-32)
[2025-05-23 04:13] VITALS: BP 156/74
--- NOTE | 2025-05-23 04:35 | NUR ---
SHIFT SUMMARY 69 YR F ADMITTED ON 05/22/25. FULL CODE. PT ADMITTED TO MEDICAL FLOOR THIS SHIFT FOR ACUTE PANCREATITIS AND ELEVATED TROPONINS. PT C/O SEVERE ABDOMINAL PAIN AND MEDICATED PER EMAR. HER TROP LEVEL HAS NEARLY DOUBLED SINCE COMING TO MED FLOOR; FROM 247 IN THE ER TO 588. HOSPITALIST NOTIFIED. PT DENIES CHEST PAIN, PRESSURE, OR TIGHTNESS. SHE IS CURRENTLY SLEEPING. SHE IS A&O X 4 AND INDEPENDANT. ABLE TO MAKE HER NEEDS KNOWN. WILL REPORT TO ONCOMING NURSE. BED IN LOW POSITION AND CALL LIGHT IN REACH.
[2025-05-23 07:31] VITALS: BP 147/68
[2025-05-23] MEDS ORDERED: Enoxaparin 40 MG/0.4 ML SYR SC SCH (09:00)
[2025-05-23 11:55] VITALS: BP 148/68
[2025-05-23] MEDS ORDERED: Insulin Regular 100 UNIT/ML 10ML Vial SC SCH (12:00)
[2025-05-23 15:41] VITALS: BP 140/73
--- NOTE | 2025-05-23 16:01 | NUR ---
PT ENDORSES ABD PAIN RELATED TO CURRENT DISEASE PROCESS. PT NPO THIS SHIFT AWAITING SURG CONSULT. INDEPENDENT IN THE ROOM. IV PAIN MEDICATION AND IV FLUIDS CONTINUED. PROLONGED QTC .50. PT DENIES N/V THIS SHIFT.
[2025-05-23 19:15] VITALS: BP 123/65
[2025-05-24] VITALS (13 sets, daily range): BP systolic 117–153; BP diastolic 48–94
--- NOTE | 2025-05-24 01:42 | NUR ---
CALLED DR SAUER TO LET HER KNOW THAT PT HAD A RUN OF SVT @ 170 AND NOW PT IS SINUS TACH @ 97, WITH NO SYMPTOMS. NO NEW ORDERS GIVEN AT THIS TIME.
[2025-05-24 05:13] LABS: BASOPHILS ABSOLUTE AUTO 0.07 K/mm3 (0.00-0.23); BASOPHILS PERCENT AUTO 0 % (0-2); EOSINOPHILS ABSOLUTE AUTO 0.00 K/mm3 (0.00-0.68); EOSINOPHILS PERCENT AUTO 0 % (0-6); Hematocrit 38.8 % (33.0-51.0); Hemoglobin 12.4 g/dL (11.5-16.0); IMMATURE GRAN ABSOLUTE AUTO 0.22 K/mm3 (0.00-0.10); IMMATURE GRAN PERCENT AUTO 1 % (0-1); LYMPHOCYTES ABSOLUTE AUTO 1.41 K/mm3 (0.84-5.20); LYMPHOCYTES PERCENT AUTO 5 % (21-46); MONOCYTES ABSOLUTE AUTO 1.67 K/mm3 (0.16-1.47); MONOCYTES PERCENT AUTO 5 % (4-13); Mean Corpuscular HGB Conc 32.0 g/dL (31.5-36.5); Mean Corpuscular Volume 88 fL (80-100); NEUTROPHILS ABSOLUTE AUTO 28.27 K/mm3 (1.96-9.15); NEUTROPHILS PERCENT AUTO 89 % (41-73); NRBC ABSOLUTE 0.00 K/mm3 (0.00-0.02); NRBC Auto 0.0 /100 WBC (0.0-0.2); Platelet Count 288 K/mm3 (150-400); RDW Coefficient Variation 14.0 % (11.7-14.2); RDW Standard Deviation 45.2 fL (35.1-46.3)
--- NOTE | 2025-05-24 05:36 | NUR ---
SHIFT SUMMARY PT ALERT ORIENTED GETS UP IN ROOM AD SYLVESTER. C/O ABD PAIN AND HAD ONE TIME WITH EMESIS. SHE WAS GIVEN DILAUDID, REGLAN AND ZOFRAN WITH GOOD RELIEF. SHE REFUSED TO TAKE THE BUSPAR STATING THAT IT NEVER WORKS GOOD FOR HER. REMAINS ON LR AT 125. FS DONE Q6HR WAS 170. SHES DUE TO START A CLEAR LIQUID DIET THIS MORNING. VSS ON RA SATTING AT 90-92%. SHE DID HAVE A RUN OF SVT LAST NIGHT OF 170 BEATS. WAS INFORMED. SHE HAD NO C/O CHEST PAIN OR ANY S/S. SHES ON TELE AT [facility] AT 97. SHE DOES BECOME VEREY TEARFUL. RESTING IN BED AT THIS TIME WITH CALL LIGHT IN REACH
[2025-05-24 06:01] LABS: Alanine Aminotransfer (ALT/SGP 24.0 U/L (12-78); Albumin, Blood 3.1 g/dL (3.4-5.0); Albumin/Globulin Ratio 0.9 (0.8-1.8); Anion Gap 7.0 mmol/L (3-11); Aspartate Aminotrans (AST/SGOT 34.0 U/L (12-37); Bilirubin, Total 1.5 mg/dL (0.1-1.0); Blood Urea Nitrogen 32.0 mg/dL (8-24); CO2, Blood 27.0 mmol/L (21-32); Calcium, Blood 7.8 mg/dL (8.5-10.1); Chloride, Blood 109.0 mmol/L (98-108); Creatinine, Blood 0.91 mg/dL (0.40-1.00); Globulin, Blood 3.3 g/dL (2.2-4.0); Glucose, Blood 206.0 mg/dL (70-99); Potassium, Blood 4.3 mmol/L (3.5-5.5); Sodium, Blood 139.0 mmol/L (136-145); Total Protein, Blood 6.4 g/dL (6.4-8.2)
[2025-05-24] MEDS ORDERED: Insulin Human Lispro 100 Units/ML 3ML Syringe SC SCH (11:30)
[2025-05-24] MEDS ORDERED: Heparin Sodium 5000 Units/ML 1ML MDV SC SCH (14:00)
[2025-05-24] MEDS ORDERED: NS 250 ML IV ONE (15:20)
[2025-05-24] MEDS ORDERED: Heparin Sodium 1000 Units/ML 10ML MDV ONE (15:20)
[2025-05-24] MEDS ORDERED: NS 1,000 ML IV ONE ×2 (15:20→15:58)
[2025-05-24] MEDS ORDERED: Nitroglycerin 2 MG/20 ML BTL ONE (15:20)
[2025-05-24] MEDS ORDERED: Verapamil HCL 2.5 MG/ML 2ML Injection ONE (15:20)
[2025-05-24] MEDS ORDERED: FentaNYL Citrate 50 MCG/ML 2 ML Injection ONE (15:57)
[2025-05-24] MEDS ORDERED: Midazolam HCl 1MG / ML 2ML Vial ONE (15:58)
--- NOTE | 2025-05-24 16:29 | NUR ---
PT TAKEN FOR ANGIO, PLAN TO TRANSFER TO PCU 14 POST PROCEDURE. REPORT GIVEN TO SHERYL JADE. PT TEARFUL THIS SHIFT. ANXIOUS AND CONCERNED FOR NEW CHF DIAGNOSIS. ALERT AND ORIENTED X4, CALLS APPROPRIATELY. PAIN IN ABD TREATED PER EMAR. PT REPORTS GERD SYMPTOMS.
--- NOTE | 2025-05-24 17:28 | NUR ---
PT IS A MEDICAL TRANSFER FOR ANGIOGRAM RECOVERY. REPORT RECEIVED FROM RHODA Collado RN. PT BELONGINGS BROUGHT TO PCU 14 WHILE THE PT WAS IN FOR HER ANGIOGRAM. THE PT ARRIVED TO PCU 14 ABOUT 1700 WITH RIGHT RADIAL ACCESS AND 12 CC'S IN THE TRBAND. THE PT'S DISTAL FINGERS HAD CAP REFILL >3 SEC AND SHE WAS C/O SOME N/T IN DISTAL FINGERS. 1CC OF AIR REMOVED AT ABOUT 1715. THE PT DENIES ANY ANGINA OR CHEST PRESSURE. BP STABLE. THE PT WAS PLACED ON 1.5L NC D/T ANXIETY AND BREATHING HEAVILY. THE PT WAS REPORTING SOME NAUSEA AND WAS MEDICATED PER EMAR. FLUIDS STARTED PER EMAR. SEE NOTES FOR UPDATES.
--- NOTE | 2025-05-24 18:18 | NUR ---
THIS RN SPOKE WITH DR. NAGY ABOUT PAIN MANAGEMENT FOR THE PT THROUGH THE NIGHT. DR. NAGY STATED HE WAS GOING TO TALK TO HIS SENIOR RESIDENTS AND CALL THIS RN BACK. SEE NOTES FOR UPDATES.
[2025-05-24] MEDS ORDERED: HYDROmorphone HCl/Pf 1MG SYR IV PRN (18:55)
--- NOTE | 2025-05-24 23:15 | NUR ---
NURSE ROUNDS 2310: PATIENT STS SHE NEEDED TO USE RESTROOM. PATIENT ASSISTED TO RR WITH SBA FOR LINE MANAGEMENT. PATIENT NOTED TO WALK WITH STEADY GAIT. DENIED DIZZINESS OR LIGHTHEADEDNESS. THIS RN FOLLOWED PATIENT INTO RESTROOM. SHE STOPPED AT TOILET AND TURNED AROUND TO SIT ON TOILET. THIS RN TOLD PATIENT THAT I WOULD STEP OUT OF ROOM TO GIVE HER SOME PRIVACY. PATIENT AGREED. SHORTLY AFTER STEPPING OUTSIDE OF RESTROOM INTO PATIENT'S ROOM, A LIGHT THUD NOISE WAS HEARD. THIS RN IMMEDIATELY RETURNED TO RESTROOM, JUST A FEW STEPS AWAY, AND PATIENT WAS FOUND ON THE FLOOR. THIS RN DID RAPID ASSESSMENT ON PATIENT WHILE ON FLOOR. PATIENT WAS A/OX4, NO LOSS OF CONSCIOUSNESS, NO OBVIOUS INJURIES. PATIENT IMMEDIATELY BEGAN TO PULL HERSELF UP TO A STANDING POSITION WITHOUT PROMPTING AND SAT BACK ONTO TOILET. PATIENT STATED "I JUST LOST MY BALANCE." PATIENT ASSISTED BACK TO BED IN HER ROOM AND MORE THOROUGH ASSESSMENT PERFORMED. PATIENTS COMPLAINTS ARE MID AND LOW BACK PAIN WITH PALPATION ALONG SPINE. NO OBVIOUS DEFOMITIES. PATIENT DENIES NEURO SX. PATIENT LEFT IN ROOM WITH CALL LIGHT AND BED IN LOWEST POSITION. PATIENT VERBALIZES USE OF CALL LIGHT IF SHE NEEDS ANYTHING. DISCUSSED THAT THIS RN WILL NOTIFY PROVIDER AND CHARGE NURSE OF INCIDENT. 2320: CHARGE NURSE NOTIFIED. VITALS CHECKED AND STABLE. 2330: ATTEMPTED TO CALL PROVIDER. NO ANSWER. PATIENT CONDITION UNCHANGED. 2347: SPOKE WITH DR SAUER ON PHONE. ASSESSMENT, VITALS, ADMISSION DX, RECENT MEDICATIONS RELAYED. ORDER FOR T-SPINE AND L- SPINE XRAYS. PATIENT NOTIFIED. 0000: IMAGING AT BEDSIDE TO TAKE PATIENT TO IMG DEPT.
[2025-05-25] VITALS (8 sets, daily range): BP systolic 111–184; BP diastolic 50–77
--- NOTE | 2025-05-25 00:30 | NUR ---
PATIENT ARRIVED BACK TO PCU FROM IMAGING. PATIENT TRANSFERRED BACK TO BED WITH SBA. PT C/O 04/08 MID BACK PAIN. STS SHE HAS A LONG HISTORY OF BACK PROBLEMS. MEDICATED WITH DILAUDID 1MG IV SLOW PUSH. PATIENT APPEARS MORE RELAXED. CONT SPO2 MONITORING IN PROGRESS. VSS.
--- NOTE | 2025-05-25 05:17 | NUR ---
SHIFT SUMMARY PATIENT A/OX4. ANXIOUS AND WORRIED AT BASELINE. PROVIDED THERAPEUTIC LISTENING AND VALIDATION OF PATIENT EXPERIENCE, WHICH SEEMED TO HELP WITH RAPPORT. PATIENT C/O SEVERE ABD PAIN T/O SHIFT. REFUSED OXYCODONE STATING THAT IT WOULD MAKE HER VOMIT. DISCUSSED NH TYLENOL, BUT SHE DECLINED. MEDICATED TOTAL OF 4.5MG DILAUDID IVP DURING SHIFT. PATIENT EXPERIENCED FALL EARLIER WHILE TOILETING (SEE NURSE NOTE). PATIENT EXPERIENCED EXACERBATION OF LOW AND MID BACK PAIN. DURING LAST PAIN ASSESSMENT (APPROX 0330) PATIENT DENIED BACK PAIN. PATIENT ABLE TO MOVE HERSELF IN BED INDEPENDENTLY. NO OTHER INCIDENTS DURING SHIFT. CALL LIGHT REMAINS IN REACH, BED ALARM ON, AND BED IN LOWEST POSITION.
--- NOTE | 2025-05-25 08:02 | NUR ---
Bedside shift report from [facility] at apporx 0715 when Dilaudid for pain control was administered by him. The pt had been moaning in pain. She became quite sleepy afterwards. Continuous oximetry and respiration rate monitoring in place. Vital signs are stable. When 1st year resident Serge and med student Jeison rounded the pt was too lethargic to participate in conversation. RR 14/min with spo2 91% on room air. B/P 141/64. Bed alarm is on. LR infusing at 150 cc/hour per orders.
[2025-05-25 09:22] LABS: BASOPHILS ABSOLUTE AUTO 0.05 K/mm3 (0.00-0.23); BASOPHILS PERCENT AUTO 0 % (0-2); EOSINOPHILS ABSOLUTE AUTO 0.09 K/mm3 (0.00-0.68); EOSINOPHILS PERCENT AUTO 0 % (0-6); Hematocrit 35.6 % (33.0-51.0); Hemoglobin 11.4 g/dL (11.5-16.0); IMMATURE GRAN ABSOLUTE AUTO 0.27 K/mm3 (0.00-0.10); IMMATURE GRAN PERCENT AUTO 1 % (0-1); LYMPHOCYTES ABSOLUTE AUTO 1.26 K/mm3 (0.84-5.20); LYMPHOCYTES PERCENT AUTO 5 % (21-46); MONOCYTES ABSOLUTE AUTO 1.09 K/mm3 (0.16-1.47); MONOCYTES PERCENT AUTO 4 % (4-13); Mean Corpuscular HGB Conc 32.0 g/dL (31.5-36.5); Mean Corpuscular Volume 88 fL (80-100); NEUTROPHILS ABSOLUTE AUTO 22.58 K/mm3 (1.96-9.15); NEUTROPHILS PERCENT AUTO 89 % (41-73); NRBC ABSOLUTE 0.00 K/mm3 (0.00-0.02); NRBC Auto 0.0 /100 WBC (0.0-0.2); Platelet Count 283 K/mm3 (150-400); RDW Coefficient Variation 14.0 % (11.7-14.2); RDW Standard Deviation 45.1 fL (35.1-46.3)
[2025-05-25 09:55] LABS: Alanine Aminotransfer (ALT/SGP 27.0 U/L (12-78); Albumin, Blood 3.0 g/dL (3.4-5.0); Albumin/Globulin Ratio 0.8 (0.8-1.8); Anion Gap 7.0 mmol/L (3-11); Aspartate Aminotrans (AST/SGOT 26.0 U/L (12-37); Bilirubin, Total 1.8 mg/dL (0.1-1.0); Blood Urea Nitrogen 31.0 mg/dL (8-24); C-REACTIVE PROTEIN, EXT RANGE 17.8 mg/dL (0.000-0.300); CO2, Blood 27.0 mmol/L (21-32); Calcium, Blood 7.9 mg/dL (8.5-10.1); Chloride, Blood 107.0 mmol/L (98-108); Creatinine, Blood 0.77 mg/dL (0.40-1.00); Globulin, Blood 3.6 g/dL (2.2-4.0); Glucose, Blood 221.0 mg/dL (70-99); Potassium, Blood 3.9 mmol/L (3.5-5.5); Sodium, Blood 137.0 mmol/L (136-145); Total Protein, Blood 6.6 g/dL (6.4-8.2)
--- NOTE | 2025-05-25 10:09 | NUR ---
Pt became more painful, crying and anxious during IV start this morning. She was medicated for nausea and for pain. She was able to take her oral medications without difficulty/nausea/vominting. She was less painful later and was able to get up out of bed without assistance to sit in wheelchair for transfer to room 305. Stated her pain was 3/10, and tolerable. Bowel tones hypoactive; pt states she is not passing gas. Declined clear liquid breakfast.
--- NOTE | 2025-05-25 19:30 | NUR ---
SHIFT SUMMARY PATIENT TRANSFERRED IN FROM PCU AT APPROXIMATELY 1000. PATIENT ALERT AND ORIENTED AND INTERACTIVE. PATIENT COMPLAINING OF ABDOMINAL PAIN AND RECIEVED IV DILAUDID PER EMAR. PATIENT ENCOURAGED TO TAKE ORAL PAIN MEDICATION. LACTATED RINGERS INFUSING AT 150ML/HR. STAND BY ASSIST TO BEDSIDE COMMODE. PATIENT NOT TOLERATING CLEAR LIQUID DIET AND HAS NOT ATE ANY MEALS THIS SHIFT. CALLS APPROPRIATELY WHEN NEEDING ASSISTANCE. BED IN LOWEST POSITION FOR SAFETY. CALL LIGHT WITHIN REACH.
[2025-05-26 03:50] VITALS: BP 125/81
--- NOTE | 2025-05-26 05:16 | NUR ---
THIS RN REVIEWED TELEMETRY STRIP AND AGREES c INTERPRETATION.
[2025-05-26 05:27] LABS: BASOPHILS ABSOLUTE AUTO 0.05 K/mm3 (0.00-0.23); BASOPHILS PERCENT AUTO 0 % (0-2); EOSINOPHILS ABSOLUTE AUTO 0.07 K/mm3 (0.00-0.68); EOSINOPHILS PERCENT AUTO 0 % (0-6); Hematocrit 32.2 % (33.0-51.0); Hemoglobin 10.5 g/dL (11.5-16.0); IMMATURE GRAN ABSOLUTE AUTO 0.13 K/mm3 (0.00-0.10); IMMATURE GRAN PERCENT AUTO 1 % (0-1); LYMPHOCYTES ABSOLUTE AUTO 1.10 K/mm3 (0.84-5.20); LYMPHOCYTES PERCENT AUTO 7 % (21-46); MONOCYTES ABSOLUTE AUTO 0.80 K/mm3 (0.16-1.47); MONOCYTES PERCENT AUTO 5 % (4-13); Mean Corpuscular HGB Conc 32.6 g/dL (31.5-36.5); Mean Corpuscular Volume 86 fL (80-100); NEUTROPHILS ABSOLUTE AUTO 14.65 K/mm3 (1.96-9.15); NEUTROPHILS PERCENT AUTO 87 % (41-73); NRBC ABSOLUTE 0.00 K/mm3 (0.00-0.02); NRBC Auto 0.0 /100 WBC (0.0-0.2); Platelet Count 244 K/mm3 (150-400); RDW Coefficient Variation 13.7 % (11.7-14.2); RDW Standard Deviation 43.8 fL (35.1-46.3)
[2025-05-26 05:53] LABS: C-REACTIVE PROTEIN, EXT RANGE 14.9 mg/dL (0.000-0.300)
[2025-05-26 05:54] LABS: Alanine Aminotransfer (ALT/SGP 26.0 U/L (12-78); Albumin, Blood 2.5 g/dL (3.4-5.0); Albumin/Globulin Ratio 0.7 (0.8-1.8); Anion Gap 9.0 mmol/L (3-11); Aspartate Aminotrans (AST/SGOT 19.0 U/L (12-37); Bilirubin, Total 1.6 mg/dL (0.1-1.0); Blood Urea Nitrogen 15.0 mg/dL (8-24); CO2, Blood 25.0 mmol/L (21-32); Calcium, Blood 8.3 mg/dL (8.5-10.1); Chloride, Blood 106.0 mmol/L (98-108); Creatinine, Blood 0.62 mg/dL (0.40-1.00); Globulin, Blood 3.7 g/dL (2.2-4.0); Glucose, Blood 209.0 mg/dL (70-99); Potassium, Blood 3.7 mmol/L (3.5-5.5); Sodium, Blood 136.0 mmol/L (136-145); Total Protein, Blood 6.2 g/dL (6.4-8.2)
--- NOTE | 2025-05-26 07:11 | NUR ---
SHIFT SUMMARY: Pt is admitted for acute pancreatitis and is a full code. Is alert and able to make needs known. ADLs have been SBA. pain has been managed with PRN medications. Deoy noted sinus in the 90s with no events.
[2025-05-26 07:25] LABS: Magnesium, Blood 2.2 mg/dL (1.6-2.4); Phosphorus, Blood 1.6 mg/dL (2.5-4.9)
[2025-05-26 08:21] VITALS: BP 158/90
[2025-05-26] MEDS ORDERED: Potassium Phosphate Dibasic 20 MM in Dextrose 5% 500 ML IV STA (10:46)
[2025-05-26 11:38] VITALS: BP 152/63
[2025-05-26] MEDS ORDERED: Amylase/Lipase/Protease DR Cap 12,000 PO SCH (12:30)
[2025-05-26] MEDS ORDERED: Sodium Phosphate 20 MM in Dextrose 5% 500 ML IV SCH (15:00)
[2025-05-26 15:04] VITALS: BP 152/56
--- NOTE | 2025-05-26 18:26 | NUR ---
NOTE PT ALERT, ANXIOUS. LOUDLY MOANING AND COMPLAINING IF STAFF IS SEEN. XANAX GIVEN X1. EFFECTIVE WITH DECREASING PT KNOWN ANXIETY. WITH MANAGEMENT OF ANXIETY HER NEED FOR DILAUDID DECREASED ANS WAS ABLE TO BE MANAGED WITH ORAL. PT PICKING AT CLEAR LIQUIDS. CREON STARTED. MEDICATED WITH REGLAN X1. PT AMBULATING TO BATHROOM WITH SBA FOR THE PUMP. GAIT STEADY. PHOSPERIOUS REPLACEMENT IN PROCESS. POWER GLIDE PLACED IN LEFT UE. RIGHT RADILA ANGIOGRAM SITE WITH SOFT, PURPLE HEMATOMA NOTED. IC IN RIGHT AC REMOVED D/T LEAKING. LEFT FA IV REMOVED D/T PAIN. PT LACK OF BM. STARTED ON BOWLE CARE. NO BM TODAY. PT REFUSED METOPROLOL. SHE STATED IT WOULD LOWER HER HEART RATE TO MUCH. CARE ONGOING. PASSING FLATUS.
[2025-05-26 19:20] VITALS: BP 177/86
[2025-05-26] MEDS ORDERED: Polyethylene Glycol 3350 17 gm PO SCH (21:00)
--- NOTE | 2025-05-26 22:01 | NUR ---
This LN checked on [facility] run about 2140. When entering the room PT stated that the IV site to left forearm just started feeling different. On assessment there was noted a little bit of fluid build up just under the skin around iv site. IV was stopped and was noted to just be starting the NS flush. When asked how long the IV site felt different she stated just before this LN came in. pharmacy was contacted for care recommendations. They stated attempt aspiration of the IV cath. Keep area elevated for a little while. And warm compresses upwards of 5 times a day. Notified provider of infiltration of ABX and pharmacy's recommendations. He agreed. He also stated to monitor the area for further changes. 2nd charge nurse notified of events.
[2025-05-27] VITALS (9 sets, daily range): BP systolic 143–194; BP diastolic 61–99
[2025-05-27 05:06] LABS: BASOPHILS ABSOLUTE AUTO 0.04 K/mm3 (0.00-0.23); BASOPHILS PERCENT AUTO 0 % (0-2); EOSINOPHILS ABSOLUTE AUTO 0.16 K/mm3 (0.00-0.68); EOSINOPHILS PERCENT AUTO 1 % (0-6); Hematocrit 32.3 % (33.0-51.0); Hemoglobin 10.9 g/dL (11.5-16.0); IMMATURE GRAN ABSOLUTE AUTO 0.05 K/mm3 (0.00-0.10); IMMATURE GRAN PERCENT AUTO 0 % (0-1); LYMPHOCYTES ABSOLUTE AUTO 1.16 K/mm3 (0.84-5.20); LYMPHOCYTES PERCENT AUTO 9 % (21-46); MONOCYTES ABSOLUTE AUTO 0.80 K/mm3 (0.16-1.47); MONOCYTES PERCENT AUTO 6 % (4-13); Mean Corpuscular HGB Conc 33.7 g/dL (31.5-36.5); Mean Corpuscular Volume 85 fL (80-100); NEUTROPHILS ABSOLUTE AUTO 11.44 K/mm3 (1.96-9.15); NEUTROPHILS PERCENT AUTO 84 % (41-73); NRBC ABSOLUTE 0.00 K/mm3 (0.00-0.02); NRBC Auto 0.0 /100 WBC (0.0-0.2); Platelet Count 295 K/mm3 (150-400); RDW Coefficient Variation 13.6 % (11.7-14.2); RDW Standard Deviation 42.4 fL (35.1-46.3)
[2025-05-27 05:32] LABS: Magnesium, Blood 2.1 mg/dL (1.6-2.4)
[2025-05-27 05:33] LABS: Alanine Aminotransfer (ALT/SGP 21.0 U/L (12-78); Albumin, Blood 2.2 g/dL (3.4-5.0); Albumin/Globulin Ratio 0.6 (0.8-1.8); Anion Gap 7.0 mmol/L (3-11); Aspartate Aminotrans (AST/SGOT 16.0 U/L (12-37); Bilirubin, Total 1.1 mg/dL (0.1-1.0); Blood Urea Nitrogen 8.0 mg/dL (8-24); CO2, Blood 26.0 mmol/L (21-32); Calcium, Blood 8.2 mg/dL (8.5-10.1); Chloride, Blood 107.0 mmol/L (98-108); Creatinine, Blood 0.64 mg/dL (0.40-1.00); Globulin, Blood 3.4 g/dL (2.2-4.0); Glucose, Blood 213.0 mg/dL (70-99); Phosphorus, Blood 2.3 mg/dL (2.5-4.9); Potassium, Blood 3.2 mmol/L (3.5-5.5); Sodium, Blood 137.0 mmol/L (136-145); Total Protein, Blood 5.6 g/dL (6.4-8.2)
--- NOTE | 2025-05-27 06:31 | NUR ---
SHIFT SUMMARY: Pt is admitted for acute pancreatitis and is a full code. Is alert and able to make needs known. ADLs have been SBA. pain has been managed with PRN medications. Hank noted sinus in the 90s with no events. Had one round of emesis that was treated with reglan that had good results.
[2025-05-27] MEDS ORDERED: Potassium Phosphate Dibasic 30 MM in Dextrose 5% 500 ML IV ONE (07:30)
[2025-05-27] MEDS ORDERED: Sacubitril/Valsartan 49 MG/51 MG Tab PO SCH (09:00)
--- NOTE | 2025-05-27 10:42 | NUR ---
RESIDENT INFORMATION PASSED ON TO [facility] RESIDENT. NO BM, LABILE MOOD, PT DECLINED METOPROLOL AND ENTRESTO. REQUESTED THAT RESIDENT EDUCATE PT ABOUT ENTRESTO. CARE ONGOING.
[2025-05-27] MEDS ORDERED: Insulin Human Lispro 100 Units/ML 3ML Syringe SC SCH (16:30)
--- NOTE | 2025-05-27 16:46 | NUR ---
BEHAVIOR PT CALLED ABOUT 1500. WENT TO ANSWER HER LIGHT. KNOCKED AND ENTERED ROOM. ENQUIRED TO NEED? PT THREW HERSELF BACK ON THE BED, NAKED AND STARTED THRASHING AND YELLING/SCREAMING. STATED CALMLY TO PT," WHEN YOU ARE READY TO USE YOUR WORDS TO EXPRESS YOUR NEEDS CALL ME." LEFT THE ROOM AND SHUT THE DOOR. SEVERAL MINUTES LATER CALL LIGHT WENT ON. KNOCKED AND WALKED IN. ENQUIRED ABOUT NEED. PT SCREAMED AT THIS NURSE AND THREW HERSELF BACK ON THE BED AND STARTED THRASHING. ASKED WHAT SHE NEEDED? PT CONTINUED WITH BEHAVIOR. TURNED AND WALKED OUT. SHUT THE DOOR. PT CALLED SHORTLY. REENTERD ROOM. PT WAS CALMLY SITTING ON THE SIDE OF THE BED NAKED. ASKED IF WANTED HELP PUTTING HER GOWN BACK ON. SHE STATED NO. THEN SHE ASKED FOR PAIN MEDICATIONS. LISTED OFF AVAILABLE OPTIONS TO ALLOW HER DIRECT CARE. PT HAS NOT REQUESTED NARCOTIC PAIN MEDICATION SINCE 0700. SHE STATED SHE WANTED THE LIQUID STUFF. REPLIED THAT THE DILAUDID PILL IS AVAILABLE AT THIS TIME. SHE STARTED SCREAMING AND THRASHING. LEFT THE ROOM AND RETRIEVED THE DILAUDID PO FOR HER. SHE SAT ON THE SIDE OF THE BED ASSESSED HER PAIN 6/10. SWALLOWED THE DILAUDID PILL WITH WATER. ON REASSESSMENT HER PAIN HAD DECREASED TO 3/10. CARE ONGOING.
--- NOTE | 2025-05-27 18:13 | NUR ---
NOTE CURRENTLY SITITNG ON THE SIDE OF THE BED. NIBBLING SPAGHETTI DINNER. PLEASANT COOPERATIVE. PLEASE AND THANK YOU. SHE CALLED THIS NURSE "ROHITH." PT STATED SHE HAD 1 BM. STAFF REQUESTED THAT SHE NOT FLUSH IF SHE HAD BM. SHE CONTINUED TO FLUSH. SBA WITH FWW. GAIT STEADY. USING HER CALL LIGHT. BED LOW AND LOCKED. CALL LIGHT WITH IN REACH.
[2025-05-28 05:50] LABS: BASOPHILS ABSOLUTE AUTO 0.06 K/mm3 (0.00-0.23); BASOPHILS PERCENT AUTO 0 % (0-2); EOSINOPHILS ABSOLUTE AUTO 0.28 K/mm3 (0.00-0.68); EOSINOPHILS PERCENT AUTO 2 % (0-6); Hematocrit 36.3 % (33.0-51.0); Hemoglobin 12.3 g/dL (11.5-16.0); IMMATURE GRAN ABSOLUTE AUTO 0.05 K/mm3 (0.00-0.10); IMMATURE GRAN PERCENT AUTO 0 % (0-1); LYMPHOCYTES ABSOLUTE AUTO 1.37 K/mm3 (0.84-5.20); LYMPHOCYTES PERCENT AUTO 10 % (21-46); MONOCYTES ABSOLUTE AUTO 0.90 K/mm3 (0.16-1.47); MONOCYTES PERCENT AUTO 6 % (4-13); Mean Corpuscular HGB Conc 33.9 g/dL (31.5-36.5); Mean Corpuscular Volume 84 fL (80-100); NEUTROPHILS ABSOLUTE AUTO 11.32 K/mm3 (1.96-9.15); NEUTROPHILS PERCENT AUTO 81 % (41-73); NRBC ABSOLUTE 0.00 K/mm3 (0.00-0.02); NRBC Auto 0.0 /100 WBC (0.0-0.2); Platelet Count 332 K/mm3 (150-400); RDW Coefficient Variation 13.4 % (11.7-14.2); RDW Standard Deviation 41.5 fL (35.1-46.3)
[2025-05-28 06:22] LABS: Alanine Aminotransfer (ALT/SGP 18.0 U/L (12-78); Albumin, Blood 2.0 g/dL (3.4-5.0); Albumin/Globulin Ratio 0.6 (0.8-1.8); Anion Gap 8.0 mmol/L (3-11); Aspartate Aminotrans (AST/SGOT 14.0 U/L (12-37); Bilirubin, Total 0.8 mg/dL (0.1-1.0); Blood Urea Nitrogen 8.0 mg/dL (8-24); CO2, Blood 25.0 mmol/L (21-32); Calcium, Blood 8.3 mg/dL (8.5-10.1); Chloride, Blood 108.0 mmol/L (98-108); Creatinine, Blood 0.64 mg/dL (0.40-1.00); Globulin, Blood 3.5 g/dL (2.2-4.0); Glucose, Blood 206.0 mg/dL (70-99); Magnesium, Blood 1.8 mg/dL (1.6-2.4); Phosphorus, Blood 2.8 mg/dL (2.5-4.9); Potassium, Blood 3.0 mmol/L (3.5-5.5); Sodium, Blood 138.0 mmol/L (136-145); Total Protein, Blood 5.5 g/dL (6.4-8.2)
[2025-05-28] MEDS ORDERED: Potassium Chl 20MEQ/Water100ML 100 ML IV SCH (07:30)
[2025-05-28] MEDS ORDERED: NS 250 ML IV PRN (08:05)
[2025-05-28 08:32] VITALS: BP 151/92
[2025-05-28] MEDS ORDERED: Insulin Human Lispro 100 Units/ML 3ML Syringe SC SCH (16:30)
--- NOTE | 2025-05-28 16:54 | NUR ---
SHIFT SUMMARY NO ACUTE CHANGES, A/Ox4, ABLE TO MAKE NEEDS KNOWN. MEDICATED FOR PAIN AND VOMITING PER EMAR. EMESIS X1. INSULIN ADMINISTERED PER SLIDING SCALE. PT SHOWERED TODAY. TELE SR 70'S. VITALS STABLE. PT TEARFUL x2 TODAY, BUT OVERALL IMPROVEMENT FROM REPORT REGARDING BEHAVIORS. POTASSIUM ADMINISTERED - PT TOLERATED WELL. PT CURRENTLY SITTING UP IN CHAIR WITH CHAIR ALARM ON AND CALL LIGHT WITHIN REACH. PT ON RA WITH NO S/SX OF DISTRESS.
[2025-05-28 19:43] VITALS: BP 148/60
[2025-05-28] MEDS ORDERED: Insulin Glargine-Yfgn 100 Unit/mL 3 ML SYR SC SCH (21:00)
[2025-05-28] MEDS ORDERED: Insulin Glargine 100 Unit/ML 3 ML SYR SC SCH (21:00)
--- NOTE | 2025-05-29 03:28 | NUR ---
WATER RESOURCE MANAGER SUMMARY VSS. ALERT AND ORIENTED. SOME PAIN AND NAUSEA AT HS, NAUSEA AND PAIN MEDS ADMINISTERED, MEDS EFFECTIVE, RESTING QUIETLY SOON AFTER. RESPS EVEN. LUNG SOUNDS CLEAR PER AUSCULTATION. UP AD SYLVESTER, APPEARS STEADY. CALL LIGHT IN REACH, RAILS UP X 2 AND BED IN LOW POSITION WHEN IN BED, CALL LIGHT IN REACH WHEN IN RECLINER. WILL CONT TO MONITOR. SEE EKG RESULTS IN CHART
[2025-05-29 04:30] VITALS: BP 132/53
[2025-05-29 06:31] LABS: BASOPHILS ABSOLUTE AUTO 0.07 K/mm3 (0.00-0.23); BASOPHILS PERCENT AUTO 1 % (0-2); EOSINOPHILS ABSOLUTE AUTO 0.43 K/mm3 (0.00-0.68); EOSINOPHILS PERCENT AUTO 4 % (0-6); Hematocrit 32.7 % (33.0-51.0); Hemoglobin 10.9 g/dL (11.5-16.0); IMMATURE GRAN ABSOLUTE AUTO 0.04 K/mm3 (0.00-0.10); IMMATURE GRAN PERCENT AUTO 0 % (0-1); LYMPHOCYTES ABSOLUTE AUTO 1.22 K/mm3 (0.84-5.20); LYMPHOCYTES PERCENT AUTO 10 % (21-46); MONOCYTES ABSOLUTE AUTO 0.76 K/mm3 (0.16-1.47); MONOCYTES PERCENT AUTO 6 % (4-13); Mean Corpuscular HGB Conc 33.3 g/dL (31.5-36.5); Mean Corpuscular Volume 83 fL (80-100); NEUTROPHILS ABSOLUTE AUTO 9.60 K/mm3 (1.96-9.15); NEUTROPHILS PERCENT AUTO 79 % (41-73); NRBC ABSOLUTE 0.00 K/mm3 (0.00-0.02); NRBC Auto 0.0 /100 WBC (0.0-0.2); Platelet Count 326 K/mm3 (150-400); RDW Coefficient Variation 13.5 % (11.7-14.2); RDW Standard Deviation 41.8 fL (35.1-46.3)
[2025-05-29 06:51] LABS: Alanine Aminotransfer (ALT/SGP 20.0 U/L (12-78); Albumin, Blood 2.0 g/dL (3.4-5.0); Albumin/Globulin Ratio 0.6 (0.8-1.8); Anion Gap 8.0 mmol/L (3-11); Aspartate Aminotrans (AST/SGOT 16.0 U/L (12-37); Bilirubin, Total 0.6 mg/dL (0.1-1.0); Blood Urea Nitrogen 10.0 mg/dL (8-24); CO2, Blood 24.0 mmol/L (21-32); Calcium, Blood 8.0 mg/dL (8.5-10.1); Chloride, Blood 109.0 mmol/L (98-108); Creatinine, Blood 0.67 mg/dL (0.40-1.00); Globulin, Blood 3.2 g/dL (2.2-4.0); Glucose, Blood 261.0 mg/dL (70-99); Magnesium, Blood 1.8 mg/dL (1.6-2.4); Phosphorus, Blood 3.5 mg/dL (2.5-4.9); Potassium, Blood 3.3 mmol/L (3.5-5.5); Sodium, Blood 138.0 mmol/L (136-145); Total Protein, Blood 5.2 g/dL (6.4-8.2)
[2025-05-29] MEDS ORDERED: Mag Sulfate 1 GM/D5% 100ML 100 ML IV STA (07:34)
[2025-05-29 08:34] VITALS: BP 163/78
[2025-05-29] MEDS ORDERED: MetFORMIN HCl 500 mg PO SCH (13:00)
--- NOTE | 2025-05-29 13:17 | NUR ---
TELEMETRY ORDERED DUE TO PT RESTARTING MEDICATIONS WITH PRE-EXISTING PROLONGED QT. PT PG PULLED THIS AM PER PROVIDER ORDERS. PT EDUCATED ON POLICY THAT WHEN PT HAS TELEMETRY/HEART MONITORING ORDERED AN IV IS REQUIRED. PT EDUCATED RE NEED FOR IV. PT REFUSED IV AT THIS TIME DESPITE EDUCATION. PROVIDER AWARE, RAW MILL OPERATOR AWARE, AND PT AWARE OF RISKS AND VERBALIZES UNDERSTANDING OF EDUCATION PROVIDED. TELE IN PLACE - SR @ 87. NO IV ACCESS.
--- NOTE | 2025-05-29 15:15 | NUR ---
THIS RN ATTEMPTED TO CALL BACK SHERYL SAMAYOA AT [facility]. YAO WITH ANOTHER PATIENT. LEFT CALL BACK NUMBER. PER HOSPITALIST, PROVIDERS HAVE BEEN IN CONTACT WITH [facility] REGARDING PT CARE AND MEDICATIONS. NO NEW INFORMATION AT THIS TIME.
[2025-05-29 15:45] VITALS: BP 132/70
--- NOTE | 2025-05-29 17:04 | NUR ---
SHIFT SUMMARY NO ACUTE CHANGES, A/Ox4, ABLE TO MAKE NEEDS KNOWN. DAILY EKG COMPLETED. ON TELE DUE TO RESTARTING/STARTING MEDICATIONS FOR QT PROLONGATION MONITORING. PT EDUCATED ON POLICY FOR IV WITH TELE MONITORING - PT REFUSED IV INSERTION DESPITE EDUCATING PT REGARDING RISKS. PT ACCEPTS RISKS. PROVIDER AND TRAINING MANAGER MADE AWARE. VITALS STABLE. GOOD ORAL INTAKE. PAIN WELL CONTROLLED. NO N/V THIS SHIFT. RESTARTING ANTIDEPRESSANTS TONIGHT ON NOC SHIFT. RN DID SPEAK WITH RN AT [facility] PER PT REQUEST TO REVIEW MEDICATIONS AND DISCHARGE PLAN. PT CURRENTLY RESTING PEACEFULLY IN HOSPITAL BED WITH BED IN LOWEST POSITION AND CALL LIGHT IN REACH.
[2025-05-29 19:21] VITALS: BP 132/51
[2025-05-29 23:40] VITALS: BP 143/62
--- NOTE | 2025-05-30 03:30 | NUR ---
DATA SECURITY COORDINATOR SUMMARY VSS. INTERMITTENT CRYING AND VOICED ANXIETY AT HS, RECEIVED CELEXA PO ORDERED AND PAIN AND NAUSEA MEDS (SEE MAR), AND AFFECT SEEMED TO CHEER UP. UP AD SYLVESTER WITH OBS. SPENT HS IN BEDSIDE RECLINER, THEN WENT TO BED, SEEMED TO SLEEP WELL WITH FEW INTERRUPTIONS SINCE. CALL LIGHT IN REACH, RAILS UP X 2 AND BED IN LOW POSITION FOR SAFETY. ENCOURAGED TO TALK TO SOMEONE IF FEELING ANXIOUS OR ANY PERSONAL ISSUES THAT SHE FELT PROBLEMATIC. VOICED SHE WOULD. WILL CONTINUE TO MONITOR.
[2025-05-30 04:20] VITALS: BP 154/57
[2025-05-30 06:16] LABS: BASOPHILS ABSOLUTE AUTO 0.07 K/mm3 (0.00-0.23); BASOPHILS PERCENT AUTO 1 % (0-2); EOSINOPHILS ABSOLUTE AUTO 0.38 K/mm3 (0.00-0.68); EOSINOPHILS PERCENT AUTO 4 % (0-6); Hematocrit 33.3 % (33.0-51.0); Hemoglobin 10.9 g/dL (11.5-16.0); IMMATURE GRAN ABSOLUTE AUTO 0.07 K/mm3 (0.00-0.10); IMMATURE GRAN PERCENT AUTO 1 % (0-1); LYMPHOCYTES ABSOLUTE AUTO 1.31 K/mm3 (0.84-5.20); LYMPHOCYTES PERCENT AUTO 13 % (21-46); MONOCYTES ABSOLUTE AUTO 0.74 K/mm3 (0.16-1.47); MONOCYTES PERCENT AUTO 7 % (4-13); Mean Corpuscular HGB Conc 32.7 g/dL (31.5-36.5); Mean Corpuscular Volume 85 fL (80-100); NEUTROPHILS ABSOLUTE AUTO 7.72 K/mm3 (1.96-9.15); NEUTROPHILS PERCENT AUTO 75 % (41-73); NRBC ABSOLUTE 0.00 K/mm3 (0.00-0.02); NRBC Auto 0.0 /100 WBC (0.0-0.2); Platelet Count 339 K/mm3 (150-400); RDW Coefficient Variation 13.7 % (11.7-14.2); RDW Standard Deviation 42.5 fL (35.1-46.3)
[2025-05-30 06:51] LABS: Alanine Aminotransfer (ALT/SGP 43.0 U/L (12-78); Albumin, Blood 2.2 g/dL (3.4-5.0); Albumin/Globulin Ratio 0.7 (0.8-1.8); Anion Gap 10.0 mmol/L (3-11); Aspartate Aminotrans (AST/SGOT 46.0 U/L (12-37); Bilirubin, Total 0.6 mg/dL (0.1-1.0); Blood Urea Nitrogen 8.0 mg/dL (8-24); CO2, Blood 23.0 mmol/L (21-32); Calcium, Blood 8.3 mg/dL (8.5-10.1); Chloride, Blood 109.0 mmol/L (98-108); Creatinine, Blood 0.77 mg/dL (0.40-1.00); Globulin, Blood 3.1 g/dL (2.2-4.0); Glucose, Blood 199.0 mg/dL (70-99); Magnesium, Blood 2.0 mg/dL (1.6-2.4); Phosphorus, Blood 3.2 mg/dL (2.5-4.9); Potassium, Blood 3.8 mmol/L (3.5-5.5); Sodium, Blood 138.0 mmol/L (136-145); Total Protein, Blood 5.3 g/dL (6.4-8.2)
[2025-05-30 07:21] VITALS: BP 134/79
[2025-05-30 11:30] VITALS: BP 141/64
[2025-05-30] MEDS ORDERED: ACET500 PO (15:13)
[2025-05-30] MEDS ORDERED: BISA5EC PO (15:14)
[2025-05-30] MEDS ORDERED: FLUAD IM (15:22)
[2025-05-30] MEDS ORDERED: JARDIANCE10 MG PO (15:22)
[2025-05-30] MEDS ORDERED: CREON DR 12,001 EACH PO (15:24)
[2025-05-30] MEDS ORDERED: ENTRESTO 49 MG1 EACH PO (15:27)
[2025-05-30] MEDS ORDERED: SENN187 PO (15:27)
[2025-05-30] MEDS ORDERED: SPIR25 PO (15:28)
[2025-05-30 15:36] VITALS: BP 134/74
--- NOTE | 2025-05-30 16:21 | NUR ---
Patient discharged home with friend. Patient education/instruction discussed with patient prior to discharge home. Medication prescriptions faxed to [facility] per patient preference. All questions answered, all belongings bagged and in patient possession. Patient transported via wheelchair to entrance.
== END 2025-05-30 16:10 | disposition home or self-care (01) | DRG 438 ==
LOC: ER 17:05 → ERHOLD 21:53 → MEDS 21:53 → PCU 05-24 16:58 → MEDS 05-25 09:55
PROVIDERS: Student in an Organized Health Care Education/Training Program; ADMIT Internal Medicine
PROC: 4A023N7 Measurement of Cardiac Sampling and Pressure, Left Heart, Percutaneous Approach (ICD-10-PCS; principal; 2025-05-24)
PROC: B2111ZZ Fluoroscopy of Multiple Coronary Arteries using Low Osmolar Contrast (ICD-10-PCS; 2025-05-24)
DX: K85.10 Biliary acute pancreatitis without necrosis or infection (principal); I21.A1 Myocardial infarction type 2; I47.10 Supraventricular tachycardia, unspecified; Z68.41 Body mass index [BMI] 40.0-44.9, adult; I50.22 Chronic systolic (congestive) heart failure; I51.81 Takotsubo syndrome; I11.0 Hypertensive heart disease with heart failure; E78.5 Hyperlipidemia, unspecified; K21.9 Gastro-esophageal reflux disease without esophagitis; F41.8 Other specified anxiety disorders; E61.1 Iron deficiency; E11.9 Type 2 diabetes mellitus without complications; I25.10 Atherosclerotic heart disease of native coronary artery without angina pectoris; E66.01 Morbid (severe) obesity due to excess calories; Z91.51 Personal history of suicidal behavior; K59.00 Constipation, unspecified; E87.6 Hypokalemia; Z87.891 Personal history of nicotine dependence; Z79.84 Long term (current) use of oral hypoglycemic drugs; Z79.899 Other long term (current) drug therapy; Z98.890 Other specified postprocedural states; Z88.1 Allergy status to other antibiotic agents; Z88.2 Allergy status to sulfonamides; Z88.5 Allergy status to narcotic agent
CPT/HCPCS: 36415; 71045; 72070; 72100; 74170; 74177; 76705; 76937; 80053; 80061; 81001; 82947; 83690; 83735; 84100; 84145; 84484; 85025; 85651; 86140; 93005; 93010; 93458; 96374-59; 96375; 99152; 99153; 99285-25; A9270; C1751; C1769; C1887; C1894; C8929; J1171; J1644; J1815; J1885; J2250; J2270; J2405; J2765; J3010; J3475; J3480; J7030; J7050; J7060; J7120; Q9957; Q9967

== ENCOUNTER 2025-06-20 13:34 | Emergency (ER) | payer OTHER ==
[~2025-06-20] VITALS: Ht 170.2 cm; Wt 122.5 kg
[~2025-06-20 13:34] MED LIST changes: +ACET500 PO; +Atarax10 MG PO; +BISA5EC PO; +CREON DR 12,001 EACH PO; +ENTRESTO 49 MG1 EACH PO; +FLUAD IM; +JARDIANCE10 MG PO; +LITH300C PO; +MOUNJARO12.5 MG/0. SQ; +SENN187 PO; +SPIR25 PO
[2025-06-20 14:14] LABS: BASOPHILS ABSOLUTE AUTO 0.06 K/mm3 (0.00-0.23); BASOPHILS PERCENT AUTO 1 % (0-2); EOSINOPHILS ABSOLUTE AUTO 0.29 K/mm3 (0.00-0.68); EOSINOPHILS PERCENT AUTO 4 % (0-6); Hematocrit 41.2 % (33.0-51.0); Hemoglobin 13.6 g/dL (11.5-16.0); IMMATURE GRAN ABSOLUTE AUTO 0.01 K/mm3 (0.00-0.10); IMMATURE GRAN PERCENT AUTO 0 % (0-1); LYMPHOCYTES ABSOLUTE AUTO 2.08 K/mm3 (0.84-5.20); LYMPHOCYTES PERCENT AUTO 27 % (21-46); MONOCYTES ABSOLUTE AUTO 0.59 K/mm3 (0.16-1.47); MONOCYTES PERCENT AUTO 8 % (4-13); Mean Corpuscular HGB Conc 33.0 g/dL (31.5-36.5); Mean Corpuscular Volume 84 fL (80-100); NEUTROPHILS ABSOLUTE AUTO 4.62 K/mm3 (1.96-9.15); NEUTROPHILS PERCENT AUTO 60 % (41-73); NRBC ABSOLUTE 0.00 K/mm3 (0.00-0.02); NRBC Auto 0.0 /100 WBC (0.0-0.2); Platelet Count 317 K/mm3 (150-400); RDW Coefficient Variation 13.6 % (11.7-14.2); RDW Standard Deviation 41.8 fL (35.1-46.3)
[2025-06-20 14:40] LABS: Alanine Aminotransfer (ALT/SGP 38.0 U/L (12-78); Albumin, Blood 3.9 g/dL (3.4-5.0); Albumin/Globulin Ratio 1.2 (0.8-1.8); Anion Gap 7.0 mmol/L (3-11); Aspartate Aminotrans (AST/SGOT 17.0 U/L (12-37); Bilirubin, Total 1.3 mg/dL (0.1-1.0); Blood Urea Nitrogen 13.0 mg/dL (8-24); CO2, Blood 28.0 mmol/L (21-32); Calcium, Blood 9.6 mg/dL (8.5-10.1); Chloride, Blood 105.0 mmol/L (98-108); Creatinine, Blood 0.7 mg/dL (0.40-1.00); Globulin, Blood 3.2 g/dL (2.2-4.0); Glucose, Blood 237.0 mg/dL (70-99); Potassium, Blood 4.2 mmol/L (3.5-5.5); Sodium, Blood 136.0 mmol/L (136-145); Total Protein, Blood 7.1 g/dL (6.4-8.2)
[2025-06-20 17:47] VITALS: BP 160/65
== END 2025-06-20 17:57 | disposition home or self-care (01) ==
LOC: ER 13:34
PROVIDERS: Physician Assistant
DX: R07.9 Chest pain, unspecified (principal); R00.2 Palpitations; I11.0 Hypertensive heart disease with heart failure; I50.9 Heart failure, unspecified; E11.9 Type 2 diabetes mellitus without complications; E78.5 Hyperlipidemia, unspecified; Z88.2 Allergy status to sulfonamides; Z88.5 Allergy status to narcotic agent; Z88.1 Allergy status to other antibiotic agents; Z88.8 Allergy status to other drugs, medicaments and biological substances; Z79.899 Other long term (current) drug therapy; Z79.84 Long term (current) use of oral hypoglycemic drugs
CPT/HCPCS: 71046; 80053; 83690; 84484; 85025; 93005; 93010; 99285-25

== ENCOUNTER → 2025-07-08 | Outpatient (CLI) | payer OTHER | END | disposition home or self-care (01) | LOC: LAB 10:45 | DX: K85.90 Acute pancreatitis without necrosis or infection, unspecified (principal) ==

== ENCOUNTER 2025-07-18 15:00 | Observation (INO) | payer OTHER ==
[~2025-07-18] VITALS: Ht 170.2 cm; Wt 124.0 kg
[~2025-07-18 15:00] MED LIST changes: +IBUP600 PO
[2025-07-18] MEDS ORDERED: Ketorolac Tromethamine 30mg Vial IV ONE (15:55)
[2025-07-18 16:18] LABS: BASOPHILS ABSOLUTE AUTO 0.06 K/mm3 (0.00-0.23); BASOPHILS PERCENT AUTO 1 % (0-2); EOSINOPHILS ABSOLUTE AUTO 0.15 K/mm3 (0.00-0.68); EOSINOPHILS PERCENT AUTO 2 % (0-6); Hematocrit 41.3 % (33.0-51.0); Hemoglobin 13.5 g/dL (11.5-16.0); IMMATURE GRAN ABSOLUTE AUTO 0.03 K/mm3 (0.00-0.10); IMMATURE GRAN PERCENT AUTO 0 % (0-1); LYMPHOCYTES ABSOLUTE AUTO 2.17 K/mm3 (0.84-5.20); LYMPHOCYTES PERCENT AUTO 24 % (21-46); MONOCYTES ABSOLUTE AUTO 0.54 K/mm3 (0.16-1.47); MONOCYTES PERCENT AUTO 6 % (4-13); Mean Corpuscular HGB Conc 32.7 g/dL (31.5-36.5); Mean Corpuscular Volume 85 fL (80-100); NEUTROPHILS ABSOLUTE AUTO 5.95 K/mm3 (1.96-9.15); NEUTROPHILS PERCENT AUTO 67 % (41-73); NRBC ABSOLUTE 0.00 K/mm3 (0.00-0.02); NRBC Auto 0.0 /100 WBC (0.0-0.2); Platelet Count 313 K/mm3 (150-400); RDW Coefficient Variation 13.3 % (11.7-14.2); RDW Standard Deviation 41.5 fL (35.1-46.3)
[2025-07-18 16:43] LABS: Source, Urine Clean Catch
[2025-07-18 16:51] LABS: Bilirubin, Urine Neg (Neg); Color, Urine Yellow (P-Yellow); Glucose Qualitative, Urine Neg (Neg); Ketones, Urine Neg (Neg); Leukocyte Esterase, Urine Neg (Neg); Protein, Urine 2+ (Neg); Specific Gravity, Urine 1.010 (1.003-1.022); Urobilinogen, Urine NORM (Normal)
[2025-07-18 16:55] LABS: Alanine Aminotransfer (ALT/SGP 24.0 U/L (12-78); Albumin, Blood 3.9 g/dL (3.4-5.0); Albumin/Globulin Ratio 1.2 (0.8-1.8); Anion Gap 9.0 mmol/L (3-11); Aspartate Aminotrans (AST/SGOT 20.0 U/L (12-37); Bilirubin, Total 0.9 mg/dL (0.1-1.0); Blood Urea Nitrogen 17.0 mg/dL (8-24); CO2, Blood 23.0 mmol/L (21-32); Calcium, Blood 9.4 mg/dL (8.5-10.1); Chloride, Blood 108.0 mmol/L (98-108); Creatinine, Blood 0.89 mg/dL (0.40-1.00); Globulin, Blood 3.2 g/dL (2.2-4.0); Glucose, Blood 182.0 mg/dL (70-99); Potassium, Blood 4.1 mmol/L (3.5-5.5); Sodium, Blood 136.0 mmol/L (136-145); Total Protein, Blood 7.1 g/dL (6.4-8.2)
[2025-07-18 16:57] LABS: Red Blood Cells, Urine 0-2 /hpf (0-2); White Blood Cells, Urine 0-2 /hpf (0-5)
[2025-07-18] MEDS ORDERED: Piperacillin/Tazobactam Sod 3.375 GM in NS 100 ML IV ONE ×2 (17:55→18:15)
[2025-07-18] MEDS ORDERED: Ondansetron HCl 2 MG / ML 2ML Vial IV ONE (17:55)
[2025-07-18] MEDS ORDERED: HYDROmorphone HCl/Pf 1MG SYR IV ONE (17:55)
[2025-07-18] MEDS ORDERED: NS 250 ML IV SCH (18:25)
[2025-07-18] MEDS ORDERED: Prochlorperazine Edisylate 10 mg Vial IV ONE (18:50)
[2025-07-18 21:39] VITALS: BP 133/63
[2025-07-18] MEDS ORDERED: Ondansetron HCl 2 MG / ML 2ML Vial IV PRN (22:10)
[2025-07-18] MEDS ORDERED: HYDROmorphone HCl/Pf 1MG SYR IV PRN (22:10)
[2025-07-18] MEDS ORDERED: Sacubitril/Valsartan 49 MG/51 MG Tab PO SCH (22:15)
[2025-07-18] MEDS ORDERED: LORazepam 2 MG/ML 1ML Injection IV PRN (22:20)
[2025-07-18] MEDS ORDERED: NS 1,000 ML IV SCH (22:20)
[2025-07-18] MEDS ORDERED: HYDROcodone 5-APAP 325 TAB PO PRN (22:20)
[2025-07-18] MEDS ORDERED: Labetalol HCL 5 MG/ML 4ML Injection (Single Dose) IV PRN (22:20)
[2025-07-18] MEDS ORDERED: Metoclopramide HCl 5MG / ML 2ML Vial IV PRN (22:20)
[2025-07-19] MEDS ORDERED: Insulin Human Lispro 100 Units/ML 3ML Syringe SC SCH
[2025-07-19] MEDS ORDERED: Piperacillin/Tazobactam Sod 3.375 GM in NS 100 ML IV SCH
[2025-07-19 04:37] VITALS: BP 116/63
--- NOTE | 2025-07-19 05:11 | NUR ---
NOC SUMMARY- PT ARRIVED TO ROOM IN NO DISTRESS. PT HAS BEEN RESTING WITHOUT ISSUE. PT DENIES PAIN OR DISCOMFORT. PT HAD SOME LOW BACK MUSCLE SPASM AND DR FERRARO ORDERED FLEXERIL. PT HAS BEEN RESTING COMFORTABLY. PY HAS BEEN NPO SINCE AR. PT IS VOIDING AND IS AMBULATORY. CALL LIGHT IN REACH.
[2025-07-19] MEDS ORDERED: Pantoprazole Sodium 40 MG Injection IV SCH (06:00)
[2025-07-19 07:25] VITALS: BP 128/51
[2025-07-19 11:35] VITALS: BP 124/57
[2025-07-19] MEDS ORDERED: Ketorolac Tromethamine 15mg Vial IV ONE (11:50)
[2025-07-19 13:57] VITALS: BP 158/85
[2025-07-19 15:00] VITALS: BP 128/58
[2025-07-19 20:10] VITALS: BP 132/63
[2025-07-20] VITALS (16 sets, daily range): BP systolic 81–158; BP diastolic 52–83
[2025-07-20 05:07] LABS: BASOPHILS ABSOLUTE AUTO 0.04 K/mm3 (0.00-0.23); BASOPHILS PERCENT AUTO 1 % (0-2); EOSINOPHILS ABSOLUTE AUTO 0.18 K/mm3 (0.00-0.68); EOSINOPHILS PERCENT AUTO 3 % (0-6); Hematocrit 37.6 % (33.0-51.0); Hemoglobin 12.3 g/dL (11.5-16.0); IMMATURE GRAN ABSOLUTE AUTO 0.01 K/mm3 (0.00-0.10); IMMATURE GRAN PERCENT AUTO 0 % (0-1); LYMPHOCYTES ABSOLUTE AUTO 1.79 K/mm3 (0.84-5.20); LYMPHOCYTES PERCENT AUTO 32 % (21-46); MONOCYTES ABSOLUTE AUTO 0.41 K/mm3 (0.16-1.47); MONOCYTES PERCENT AUTO 7 % (4-13); Mean Corpuscular HGB Conc 32.7 g/dL (31.5-36.5); Mean Corpuscular Volume 85 fL (80-100); NEUTROPHILS ABSOLUTE AUTO 3.14 K/mm3 (1.96-9.15); NEUTROPHILS PERCENT AUTO 56 % (41-73); NRBC ABSOLUTE 0.00 K/mm3 (0.00-0.02); NRBC Auto 0.0 /100 WBC (0.0-0.2); Platelet Count 229 K/mm3 (150-400); RDW Coefficient Variation 13.5 % (11.7-14.2); RDW Standard Deviation 42.0 fL (35.1-46.3)
[2025-07-20 05:29] LABS: Alanine Aminotransfer (ALT/SGP 22.0 U/L (12-78); Albumin, Blood 3.0 g/dL (3.4-5.0); Albumin/Globulin Ratio 1.1 (0.8-1.8); Anion Gap 9.0 mmol/L (3-11); Aspartate Aminotrans (AST/SGOT 13.0 U/L (12-37); Bilirubin, Total 1.0 mg/dL (0.1-1.0); Blood Urea Nitrogen 11.0 mg/dL (8-24); CO2, Blood 24.0 mmol/L (21-32); Calcium, Blood 8.4 mg/dL (8.5-10.1); Chloride, Blood 113.0 mmol/L (98-108); Creatinine, Blood 0.8 mg/dL (0.40-1.00); Globulin, Blood 2.7 g/dL (2.2-4.0); Glucose, Blood 173.0 mg/dL (70-99); Potassium, Blood 3.8 mmol/L (3.5-5.5); Sodium, Blood 142.0 mmol/L (136-145); Total Protein, Blood 5.7 g/dL (6.4-8.2)
--- NOTE | 2025-07-20 07:38 | NUR ---
SHIFT SUMMARY NOC. PT ADMIT FOR ACUTE AYAN. PT MEDICATED FOR RADIATING ABD PAIN AND MUSCLE SPASMS. PT NPO SINCE 0000 ASIDE FROM SMALL SIP OF WATER WITH MUSCLE RELAXER. PT REPORTS PAIN MANAGED WITH MEDICATION. PT VOIDING URINE. CHEM BG'S STABLE, PT DECLINED 1 UNIT THIS AM DUE TO CONCERN FOR LOWS AND UNKNOWN TIME FOR POTENTIAL PROCEDURE. MAKES NEEDS KNOWN, CALL LIGHT IN REACH.
[2025-07-20] MEDS ORDERED: Dexamethasone Sod Phos 10 MG/ML 1ML VIAL ONE (10:57)
[2025-07-20] MEDS ORDERED: Ondansetron HCl 2 MG / ML 2ML Vial ONE (10:57)
[2025-07-20] MEDS ORDERED: Rocuronium Bromide 10 MG/ML 5ML Injection IV ONE (10:57)
[2025-07-20] MEDS ORDERED: FentaNYL Citrate 50 MCG/ML 2 ML Injection ONE ×2 (10:59→12:39)
--- NOTE | 2025-07-20 11:36 | NUR ---
PT TRANSPORTED TO [facility]. AGREES WITH PLANNED SURGERY. LUNG SOUNDS CLEAR. History, Chart, Medications and Allergies reviewed before start of procedure. Patient confirms NPO status and agrees with scheduled surgery.
[2025-07-20] MEDS ORDERED: Bupivacaine 0.5% HCl 5 MG/ML 30MLVIAL ONE (11:41)
--- NOTE | 2025-07-20 11:45 | NUR ---
Patient taken via gurney to day surgery for scheduled lap daniele at approximately 1115.
[2025-07-20] MEDS ORDERED: Sugammadex Sodium 200 MG/2ML SDV (100 MG/ML) ONE (12:18)
[2025-07-20] MEDS ORDERED: HYDROmorphone HCl/Pf 1MG SYR IV PRN ×2 (12:40→14:55)
[2025-07-20] MEDS ORDERED: FentaNYL Citrate 50 MCG/ML 2 ML Injection IV PRN ×2 (12:40)
[2025-07-20] MEDS ORDERED: Ondansetron HCl 2 MG / ML 2ML Vial IV PRN (12:45)
--- NOTE | 2025-07-20 14:08 | NUR ---
Patient back to room from PACU after having a lap daniele. Patient with complaint of pain and medicated per EMAR. Incisions are C/D/I at this time. Patient denies SOB, CP or pressure at this time. Call light within reach and bed in lowest position.
--- NOTE | 2025-07-20 17:28 | NUR ---
End of shift summary: Patient is alert and oriented x4; pleasant and cooperative with care. Patient with lap daniele today and 4 incision sites w/o redness or s/s infection. Patient with episode of soft bp when up to br for first time; now vss and baseline. Patient with complaint of pain and nausea after surgery and medication administered per EMAR with good relief. Patient up in recliner and call light within reach. Will continue to monitor until next shift nurse arrives and report is given.
--- NOTE | 2025-07-20 20:39 | NUR ---
PT REPORTED UNABLE TO TOLERATE DILAUDID,AND IS SENSITIVE TO MULTIPLE PO PAIN MEDS WELL NOTED PER ALLERGY LIST,I SPOKE WITH CAROLIN REGARDING THIS AND RECEIVED ORDERS FOR TRAMADOL WHICH I CONFIRMED WITH PHARMACIST TO BE OK TO ORDER IN REGARDS TO PTS ALLERGY AND MED LIST.
[2025-07-21 04:05] VITALS: BP 135/60
--- NOTE | 2025-07-21 05:09 | NUR ---
SHIFT SUMMARY NO ACUTE EVENTS OVERNIGHT. PT AMBULATED MULTIPLE TIMES IN THE HALLWAY USING FWW FOR STABILITY. PT HAS NOT HAD BM AND HAS NOT PASSED FLATUS OF THIS NOTE. PT TOLERATING PO INTAKE.
[2025-07-21 05:18] VITALS: BP 151/84
[2025-07-21] MEDS ORDERED: Insulin Human Lispro 100 Units/ML 3ML Syringe SC SCH (07:30)
[2025-07-21 07:31] VITALS: BP 151/62
[2025-07-21] MEDS ORDERED: Magnesium Hydroxide Conc 10 ML UDC PO PRN (10:20)
[2025-07-21 14:01] VITALS: BP 128/64
--- NOTE | 2025-07-21 17:19 | NUR ---
SUMMARY NO ACUTE CHANGES T/O SHIFT. PT INDEPENDENT, AMBULATED IN TORRES. MEDICATED PER ORDERS FOR PAIN, GAS PAIN DURING SHIFT. PT CURRENTLY SITTING UP IN RECLINER, IV ABX INFUSING PER ORDERS.
[2025-07-21] MEDS ORDERED: Polyethylene Glycol 3350 17 gm PO SCH (19:00)
[2025-07-21 20:16] VITALS: BP 123/52
--- NOTE | 2025-07-22 04:37 | NUR ---
SHIFT SUMMARY NO ACUTE EVENTS OVERNIGHT. PT REPORTS PASSING FLATUS AND HAS LESS C/O GAS PAIN THAN PREVIOUS NOC SHIFT. PT ANTICIPATING DISCHARGE TODAY.
[2025-07-22 05:19] VITALS: BP 138/62
[2025-07-22 06:08] LABS: BASOPHILS ABSOLUTE AUTO 0.06 K/mm3 (0.00-0.23); BASOPHILS PERCENT AUTO 1 % (0-2); EOSINOPHILS ABSOLUTE AUTO 0.22 K/mm3 (0.00-0.68); EOSINOPHILS PERCENT AUTO 3 % (0-6); Hematocrit 29.7 % (33.0-51.0); Hemoglobin 9.6 g/dL (11.5-16.0); IMMATURE GRAN ABSOLUTE AUTO 0.02 K/mm3 (0.00-0.10); IMMATURE GRAN PERCENT AUTO 0 % (0-1); LYMPHOCYTES ABSOLUTE AUTO 2.52 K/mm3 (0.84-5.20); LYMPHOCYTES PERCENT AUTO 33 % (21-46); MONOCYTES ABSOLUTE AUTO 0.59 K/mm3 (0.16-1.47); MONOCYTES PERCENT AUTO 8 % (4-13); Mean Corpuscular HGB Conc 32.3 g/dL (31.5-36.5); Mean Corpuscular Volume 86 fL (80-100); NEUTROPHILS ABSOLUTE AUTO 4.27 K/mm3 (1.96-9.15); NEUTROPHILS PERCENT AUTO 56 % (41-73); NRBC ABSOLUTE 0.00 K/mm3 (0.00-0.02); NRBC Auto 0.0 /100 WBC (0.0-0.2); Platelet Count 235 K/mm3 (150-400); RDW Coefficient Variation 14.2 % (11.7-14.2); RDW Standard Deviation 44.2 fL (35.1-46.3)
[2025-07-22 06:42] LABS: Alanine Aminotransfer (ALT/SGP 24.0 U/L (12-78); Albumin, Blood 2.9 g/dL (3.4-5.0); Albumin/Globulin Ratio 1.0 (0.8-1.8); Anion Gap 8.0 mmol/L (3-11); Aspartate Aminotrans (AST/SGOT 12.0 U/L (12-37); Bilirubin, Total 1.3 mg/dL (0.1-1.0); Blood Urea Nitrogen 14.0 mg/dL (8-24); CO2, Blood 25.0 mmol/L (21-32); Calcium, Blood 8.4 mg/dL (8.5-10.1); Chloride, Blood 110.0 mmol/L (98-108); Creatinine, Blood 0.94 mg/dL (0.40-1.00); Globulin, Blood 2.9 g/dL (2.2-4.0); Glucose, Blood 153.0 mg/dL (70-99); Potassium, Blood 3.9 mmol/L (3.5-5.5); Sodium, Blood 139.0 mmol/L (136-145); Total Protein, Blood 5.8 g/dL (6.4-8.2)
[2025-07-22 07:18] VITALS: BP 130/52
--- NOTE | 2025-07-22 11:48 | NUR ---
DR MEJIA IN TO SEE PT
[2025-07-22] MEDS ORDERED: DOCU100 PO (13:04)
[2025-07-22] MEDS ORDERED: MIRALAX17 GM PO (13:05)
--- NOTE | 2025-07-22 13:41 | NUR ---
discharging PT INSISTING ON DRIVING SELF HOME, STATING HAS NO ONE TO COME GET HER. ADVISED PT SHE MUST WAIT UNTIL 1600 SO A PERIOD OF 8 HRS HAS ELAPSED SINCE LAST DOSE OF PAIN MED. PT IS AGREEABLE.
[2025-07-22 14:03] VITALS: BP 109/50
--- NOTE | 2025-07-22 16:03 | NUR ---
discharged REVIEWED DC INSTRUCTIONS W/PT; VERBALIZED UNDERSTANDING. PT SIGNED DC PAPERWORK. WAITED FULL 8 HRS AFTER TRAMADOL TO DC. PT LEFT UNIT IN WC W/POSSESSIONS AND DC PAPERWORK IN HAND TO CAR OUTSIDE.
== END 2025-07-22 16:01 | disposition home or self-care (01) ==
LOC: ER 15:00 → SURS 15:01
PROVIDERS: Family Medicine; Student in an Organized Health Care Education/Training Program; Surgery; ADMIT Internal Medicine
PROC: 0FT44ZZ Resection of Gallbladder, Percutaneous Endoscopic Approach (ICD-10-PCS; principal; 2025-07-20 12:30)
DX: K80.10 Calculus of gallbladder with chronic cholecystitis without obstruction (principal); I50.20 Unspecified systolic (congestive) heart failure; I10 Essential (primary) hypertension; E78.5 Hyperlipidemia, unspecified; E11.9 Type 2 diabetes mellitus without complications; K59.00 Constipation, unspecified; K57.30 Diverticulosis of large intestine without perforation or abscess without bleeding; K21.9 Gastro-esophageal reflux disease without esophagitis; E66.01 Morbid (severe) obesity due to excess calories; Z68.41 Body mass index [BMI] 40.0-44.9, adult; Z86.79 Personal history of other diseases of the circulatory system; Z87.891 Personal history of nicotine dependence; Z79.84 Long term (current) use of oral hypoglycemic drugs; Z79.899 Other long term (current) drug therapy; Z88.1 Allergy status to other antibiotic agents; Z88.2 Allergy status to sulfonamides; Z88.5 Allergy status to narcotic agent
CPT/HCPCS: 36415; 71046; 74177; 78226; 80053; 81001; 82947; 83690; 83880; 84484; 85025; 88304; 93005; 93010; 94760; 96366; 96375; 96376; 99285-25; A9270; A9537; C1729; C8929; G0378; J0780; J1100; J1171; J1885; J2405; J2470; J2543; J2704; J2765; J3010; J7030; J7120; Q9957; Q9967